=== PATIENT | female | born 1975 | race Caucasian/White ===

== ENCOUNTER 2018-10-05 17:52 | Inpatient (IN) | payer OTHER ==
[2018-10-05] MEDS ORDERED: SODIUM CHLORIDE 0.9% 1,000 ML IV STA (18:30)
[2018-10-05] MEDS ORDERED: IBUPROFEN 600 MG TAB PO STA (18:30)
[2018-10-05 19:11] LABS: Basophils # (A) 0.2 k/uL (0-0.2); Basophils % (A) 1 %; Eosinophils # (A) 0.3 k/uL (0-0.7); Eosinophils % (A) 1 %; HCT 37.3 % (34.0-46.0); HGB 11.9 gm/dL (11.4-16.0); Hypochromasia Slight; Lymphocytes # (A) 2.1 k/uL (1.0-4.8); Lymphocytes % (A) 8 %; MCH 27.2 pg (25.0-35.0); MCV 84.9 fL (80.0-100.0); Mean Platelet Volume 7.5; Monocytes # (A) 1.6 k/uL (0-1.0); Monocytes % (A) 6 %; Neutrophils # (A) 23.5 k/uL (1.3-7.7); Neutrophils % (A) 84 %; Platelet Count 490 k/uL (150-450); RBC 4.39 m/uL (3.80-5.40); RDW 14.5 % (11.5-15.5); WBC 27.9 k/uL (3.8-10.6)
[2018-10-05 19:21] LABS: ALT 17 U/L (9-52); AST 26 U/L (14-36); African American GFR (CKD) >90 (>60 ml/min/1.73 sqM); Albumin 3.8 g/dL (3.5-5.0); Alkaline Phosphatase 139 U/L (38-126); Anion Gap 19 mmol/L; Blood Urea Nitrogen 8 mg/dL (7-17); Calcium 9.4 mg/dL (8.4-10.2); Carbon Dioxide 20 mmol/L (22-30); Chloride 96 mmol/L (98-107); Glucose 358 mg/dL (74-99); Magnesium 1.7 mg/dL (1.6-2.3); Non-African American GFR(CKD) >90 (>60 ml/min/1.73 sqM); Potassium 4.2 mmol/L (3.5-5.1); Sodium 135 mmol/L (137-145); Total Bilirubin 0.7 mg/dL (0.2-1.3); Total Protein 7.7 g/dL (6.3-8.2)
[2018-10-05 19:26] LABS: INR 0.9 (<1.2); Partial Thromboplastin Time 23.7 sec (22.0-30.0); Prothrombin Time 9.5 sec (9.0-12.0)
--- NOTE | 2018-10-05 19:33 | XR ---
EXAMINATION TYPE: XR chest 2V DATE OF EXAM: 10/05/2018 COMPARISON: NONE HISTORY: Fever TECHNIQUE: Frontal and lateral views of the chest are obtained. FINDINGS: Heart and mediastinum are normal. Lungs are clear. Diaphragm is normal. Bony thorax appear s normal. IMPRESSION: Normal chest.
--- NOTE | 2018-10-05 19:49 | ED ---
General Adult HPI - General Chief complaint: Arrhythmia/Palpitations Stated complaint: High HR, High BP Time Seen by Provider: 10/05/18 18:05 Source: patient Mode of arrival: ambulatory Limitations: no limitations - History of Present Illness Initial comments: The patient is a 42-year-old female with past medical history of insulin dependant diabetes who presents to the emergency room with reported cold-like symptoms for the past 3 weeks. She states that it started with bilateral ear pain and decreased hearing. She states that it then progressed to significant nasal drainage and a sore throat. Now reports that she feels as if she is having difficulty swallowing because of copious nasal drainage. She did go to an urgent care. They found that the patient had an elevated heart rate and blood pressure and sent her to the emergency room for evaluation. Upon arrival the patient does have a blood pressure of 200 systolic. She also has a heart rate in the 140s. She states that she has been using a significant amount of Sudafed and DayQuil [id number] for her ALLERGY symptoms. States she may have taken it in excess. She reports a nonproductive cough. She denies any headaches or visual changes. No unilateral numbness or weakness. No neck pain or stiffness. Denies any chest pain. Does admit to shortness of breath. She denies any abdominal pain or changes in her bowel or bladder habits. Denies dysuria, hematuria or difficulty voiding. Denies any melanotic stools or hematochezia. No diarrhea or constipation. She does have a history of diabetes. States she has not taken her insulin in 2 years because she moved to the area and never established care. She has never been in DKA. There are no other alleviating, precipitating or modifying factors - Related Data Home Medications Medication Instructions Recorded Confirmed Cetirizine HCl [Zyrtec] 10 mg PO DAILY 10/05/18 10/05/18 Ibuprofen [Motrin Ib] 400 mg PO Q6HR PRN 10/05/18 10/05/18 Previous Rx's Medication Instructions Recorded Amoxic-Pot Clav 875-125Mg 1 tab PO Q12HR #20 tablet 10/08/18 [Augmentin 875-125] Insulin Detemir (Levemir) [Levemir] 50 unit SQ HS #30 syr 10/08/18 Metoprolol Tartrate [Lopressor] 50 mg PO BID #60 tab 10/08/18 Syringe and Needle,Insulin,1Ml 1 each SQ HS #100 disp.syrin 10/08/18 [Insulin Syringe 29G 1/2" 1ml] Allergies Allergy/AdvReac Type Severity Reaction Status Date / Time coconut Allergy Unknown Verified 10/05/18 19:02 palm oil Allergy Unknown Verified 10/05/18 19:02 acetaminophen [From [place]] AdvReac HEADACHE Verified 10/05/18 19:02 hydrocodone [From [place]] AdvReac HEADACHE Verified 10/05/18 19:02 Review of Systems ROS Statement: Those systems with pertinent positive or pertinent negative responses have been documented in the HPI. ROS Other: All systems not noted in ROS Statement are negative. Past Medical History Past Medical History: Diabetes Mellitus History of Any Multi-Drug Resistant Organisms: None Reported Past Surgical History: Section, Hernia Repair, Tonsillectomy Past Psychological History: No Psychological Hx Reported Smoking Status: Never smoker Past Alcohol Use History: None Reported Past Drug Use History: None Reported General Exam Limitations: no limitations General appearance: alert, in no apparent distress Head exam: Present: atraumatic, normocephalic, normal inspection Eye exam: Present: normal appearance, PERRL, EOMI. Absent: scleral icterus, conjunctival injection, periorbital swelling ENT exam: Present: mucous membranes moist, TM's normal bilaterally, normal external ear exam, other (posterior pharynx is erythematous. No uvular deviation. No peritonsillar abscess. No white plaquing. No drooling, trismus, hoarseness or stridor. No brawny edema to the neck. Floor of mouth is soft. No tongue swelling. ) Neck exam: Present: normal inspection, lymphadenopathy (anterior cervical lymphadenopathy). Absent: tenderness, meningismus Respiratory exam: Present: normal lung sounds bilaterally. Absent: respiratory distress, wheezes, rales, rhonchi, stridor Cardiovascular Exam: Present: normal rhythm, tachycardia, normal heart sounds. Absent: systolic murmur, diastolic murmur, rubs, gallop, clicks GI/Abdominal exam: Present: soft, normal bowel sounds. Absent: distended, tenderness, guarding, rebound, rigid Extremities exam: Present: normal inspection, full ROM, normal capillary refill. Absent: tenderness, pedal edema, joint swelling, calf tenderness Back exam: Present: normal inspection Neurological exam: Present: alert, oriented X3, CN II-XII intact Psychiatric exam: Present: normal affect, normal mood Skin exam: Present: warm, dry, intact, normal color. Absent: rash Course Vital Signs 10/05/18 10/05/18 10/05/18 17:59 19:08 19:22 Temperature 100.3 F H Pulse Rate 141 H 135 H Pulse Rate [ 135 H [employer] ] Respiratory 18 18 Rate Blood Pressure 198/103 199/114 O2 Sat by Pulse 97 96 Oximetry 10/05/18 10/05/18 10/05/18 19:59 20:48 22:27 Temperature 99.3 F 99.0 F 98.8 F Pulse Rate 134 H 130 H 130 H Pulse Rate [ [employer] ] Respiratory 16 16 16 Rate Blood Pressure 198/114 154/86 180/96 O2 Sat by Pulse 98 98 95 Oximetry 10/05/18 23:00 Temperature 98.3 F Pulse Rate 128 H Pulse Rate [ [employer] ] Respiratory 16 Rate Blood Pressure 182/89 O2 Sat by Pulse 95 Oximetry EKG Findings - EKG Comments: EKG Findings:: EKG demonstrates a sinus tachycardia with a ventricular rate of 137. SD interval 134. QRS 88. QTC 446. There are no acute ST segment elevations or depressions concerning for ischemic changes Medical Decision Making - Medical Decision Making Upon arrival the patient is placed into room 6. She is hooked to continuous pulse ox and cardiac monitoring. Peripheral IV is established. The patient is given a 2 L bolus of 0.9% normal saline. We did perform a 12-lead EKG which demonstrates a sinus tachycardia. There are no signs of Parkinson White or Brugada. I did recommend laboratory studies, urinalysis, CT of the patient's sinuses and neck. I also recommended a chest x-ray. The patient did agree to this. Upon return of the results, I did discuss them with the patient. I did discuss diagnosis, differential and treatment options. The patient does have 4+ ketones in her urine. She has a glucose of 358 and a gap of 19. Because of this, I made the patient aware that she is in DKA. I did place an order for Accu-Cheks every 1 hour. The patient will be placed on insulin drip starting at 6 units per hour. I ordered lytes every 4 hours. Blood cultures were obtained and the patient was started on Unasyn. She was admitted to Dr. Elaine. I did call and discuss the case with him and he did accept the admission. Bridging orders were placed. The patient's blood pressure has improved to 150 systolic. Her heart rate has also improved slightly. The patient remained in stable condition awaiting transport to the floor - Differential Diagnosis acute DKA, acute tachycardia, acute pharyngitis, SIRS 3/4 - Lab Data Result diagrams: 10/08/18 06:08 10/08/18 06:08 Lab Results 10/05/18 10/05/18 10/05/18 Range/Units 18:55 19:01 19:01 WBC 27.9 H (3.8-10.6) k/uL RBC 4.39 (3.80-5.40) m/uL Hgb 11.9 (11.4-16.0) gm/dL Hct 37.3 (34.0-46.0) % MCV 84.9 (80.0-100.0) fL MCH 27.2 (25.0-35.0) pg MCHC 32.0 (31.0-37.0) g/dL RDW 14.5 (11.5-15.5) % Plt Count 490 H (150-450) k/uL Neutrophils % 84 % Lymphocytes % 8 % Monocytes % 6 % Eosinophils % 1 % Basophils % 1 % Neutrophils # 23.5 H (1.3-7.7) k/uL Lymphocytes # 2.1 (1.0-4.8) k/uL Monocytes # 1.6 H (0-1.0) k/uL Eosinophils # 0.3 (0-0.7) k/uL Basophils # 0.2 (0-0.2) k/uL Hypochromasia Slight PT 9.5 (9.0-12.0) sec INR 0.9 (<1.2) APTT 23.7 (22.0-30.0) sec Sodium 135 L (137-145) mmol/L Potassium 4.2 (3.5-5.1) mmol/L Chloride 96 L (98-107) mmol/L Carbon Dioxide 20 L (22-30) mmol/L Anion Gap 19 mmol/L BUN 8 (7-17) mg/dL Creatinine 0.39 L (0.52-1.04) mg/dL Est GFR (CKD-EPI)AfAm >90 (>60 ml/min/1.73 sqM) Est GFR (CKD-EPI)NonAf >90 (>60 ml/min/1.73 sqM) Glucose 358 H (74-99) mg/dL Plasma Lactic Acid James (0.7-2.0) mmol/L Calcium 9.4 (8.4-10.2) mg/dL Magnesium 1.7 (1.6-2.3) mg/dL Total Bilirubin 0.7 (0.2-1.3) mg/dL AST 26 (14-36) U/L ALT 17 (9-52) U/L Alkaline Phosphatase 139 H (38-126) U/L Total Protein 7.7 (6.3-8.2) g/dL Albumin 3.8 (3.5-5.0) g/dL Urine Color Urine Appearance (Clear) Urine pH (5.0-8.0) Ur Specific [place] (1.001-1.035) Urine Protein (Negative) Urine Glucose (UA) (Negative) Urine Ketones (Negative) Urine Blood (Negative) Urine Nitrite (Negative) Urine Bilirubin (Negative) Urine Urobilinogen (<2.0) mg/dL Ur Leukocyte Esterase (Negative) Urine RBC (0-5) /hpf Urine WBC (0-5) /hpf Ur Squamous Epith Cells (0-4) /hpf Urine Bacteria (None) /hpf Urine Mucus (None) /hpf Acetone, Qual (Negative) Group A Strep Rapid (Negative) 10/05/18 10/05/18 10/05/18 Range/Units 19:01 19:01 19:01 WBC (3.8-10.6) k/uL RBC (3.80-5.40) m/uL Hgb (11.4-16.0) gm/dL Hct (34.0-46.0) % MCV (80.0-100.0) fL MCH (25.0-35.0) pg MCHC (31.0-37.0) g/dL RDW (11.5-15.5) % Plt Count (150-450) k/uL Neutrophils % % Lymphocytes % % Monocytes % % Eosinophils % % Basophils % % Neutrophils # (1.3-7.7) k/uL Lymphocytes # (1.0-4.8) k/uL Monocytes # (0-1.0) k/uL Eosinophils # (0-0.7) k/uL Basophils # (0-0.2) k/uL Hypochromasia PT (9.0-12.0) sec INR (<1.2) APTT (22.0-30.0) sec Sodium (137-145) mmol/L Potassium (3.5-5.1) mmol/L Chloride (98-107) mmol/L Carbon Dioxide (22-30) mmol/L Anion Gap mmol/L BUN (7-17) mg/dL Creatinine (0.52-1.04) mg/dL Est GFR (CKD-EPI)AfAm (>60 ml/min/1.73 sqM) Est GFR (CKD-EPI)NonAf (>60 ml/min/1.73 sqM) Glucose (74-99) mg/dL Plasma Lactic Acid James 1.6 (0.7-2.0) mmol/L Calcium (8.4-10.2) mg/dL Magnesium (1.6-2.3) mg/dL Total Bilirubin (0.2-1.3) mg/dL AST (14-36) U/L ALT (9-52) U/L Alkaline Phosphatase (38-126) U/L Total Protein (6.3-8.2) g/dL Albumin (3.5-5.0) g/dL Urine Color Urine Appearance (Clear) Urine pH (5.0-8.0) Ur Specific [place] (1.001-1.035) Urine Protein (Negative) Urine Glucose (UA) (Negative) Urine Ketones (Negative) Urine Blood (Negative) Urine Nitrite (Negative) Urine Bilirubin (Negative) Urine Urobilinogen (<2.0) mg/dL Ur Leukocyte Esterase (Negative) Urine RBC (0-5) /hpf Urine WBC (0-5) /hpf Ur Squamous Epith Cells (0-4) /hpf Urine Bacteria (None) /hpf Urine Mucus (None) /hpf Acetone, Qual Positive (Negative) Group A Strep Rapid Negative (Negative) 10/05/18 Range/Units 20:48 WBC (3.8-10.6) k/uL RBC (3.80-5.40) m/uL Hgb (11.4-16.0) gm/dL Hct (34.0-46.0) % MCV (80.0-100.0) fL MCH (25.0-35.0) pg MCHC (31.0-37.0) g/dL RDW (11.5-15.5) % Plt Count (150-450) k/uL Neutrophils % % Lymphocytes % % Monocytes % % Eosinophils % % Basophils % % Neutrophils # (1.3-7.7) k/uL Lymphocytes # (1.0-4.8) k/uL Monocytes # (0-1.0) k/uL Eosinophils # (0-0.7) k/uL Basophils # (0-0.2) k/uL Hypochromasia PT (9.0-12.0) sec INR (<1.2) APTT (22.0-30.0) sec Sodium (137-145) mmol/L Potassium (3.5-5.1) mmol/L Chloride (98-107) mmol/L Carbon Dioxide (22-30) mmol/L Anion Gap mmol/L BUN (7-17) mg/dL Creatinine (0.52-1.04) mg/dL Est GFR (CKD-EPI)AfAm (>60 ml/min/1.73 sqM) Est GFR (CKD-EPI)NonAf (>60 ml/min/1.73 sqM) Glucose (74-99) mg/dL Plasma Lactic Acid James (0.7-2.0) mmol/L Calcium (8.4-10.2) mg/dL Magnesium (1.6-2.3) mg/dL Total Bilirubin (0.2-1.3) mg/dL AST (14-36) U/L ALT (9-52) U/L Alkaline Phosphatase (38-126) U/L Total Protein (6.3-8.2) g/dL Albumin (3.5-5.0) g/dL Urine Color Light Yellow Urine Appearance Clear (Clear) Urine pH 5.5 (5.0-8.0) Ur Specific [place] >1.050 H (1.001-1.035) Urine Protein 2+ H (Negative) Urine Glucose (UA) 4+ H (Negative) Urine Ketones 4+ H (Negative) Urine Blood Negative (Negative) Urine Nitrite Negative (Negative) Urine Bilirubin Negative (Negative) Urine Urobilinogen <2.0 (<2.0) mg/dL Ur Leukocyte Esterase Negative (Negative) Urine RBC 2 (0-5) /hpf Urine WBC 3 (0-5) /hpf Ur Squamous Epith Cells 1 (0-4) /hpf Urine Bacteria Occasional H (None) /hpf Urine Mucus Rare H (None) /hpf Acetone, Qual (Negative) Group A Strep Rapid (Negative) Disposition Clinical Impression: Sinus tachycardia, Diabetic keto-acidosis, Sinusitis Disposition: ADMITTED IP TO THIS HOSP Condition: Stable Is patient prescribed a controlled substance at d/c from ED?: No Decision to Admit Reason: Admit from EC Decision Date: 10/05/18 Decision Time: 22:07
--- NOTE | 2018-10-05 20:04 | CT ---
EXAMINATION TYPE: CT soft tissue neck w con DATE OF EXAM: 10/05/2018 7:46 PM COMPARISON: None HISTORY: Sore throat and congestion CT DLP: 269 mGycm Automated exposure control for dose reduction was used. CONTRAST: CT scan of the neck is performed following with IV Contrast, patient injected with 100 mL of Isovue 3 00. Axial images are obtained, coronal and sagittal reformatted images are reviewed. FINDINGS: There is normal branching pattern of the great vessels on the aortic arch. There is air in the upper thoracic esophagus. Thyroid gland is symmetric. There is contrast opacification of the carotid arteri es and jugular veins. There is contrast opacification of the vertebral arteries. Submandibular saliva ry glands are symmetric. There are multiple bilateral anterior and posterior triangle cervical lymph nodes. The largest measures 1.3 x 1 cm. The parotid glands are symmetric. There are parotid lymph nod es that measure up to 1 cm. The tonsils are within normal limits. Adenoids appear normal. Epiglottis appears normal. The visualized trachea appears normal. There is normal aeration of the visualized par anasal sinuses. Skull base is intact. Temporal bones are intact. IMPRESSION: Mild anterior and posterior bilateral cervical lymphadenopathy. No evidence of an absces s. This is consistent with nonspecific inflammatory process. No evidence of abscess. Normal epiglotti s.
[2018-10-05] MEDS ORDERED: AMPICILLIN-SULBACTAM 3 GM in SODIUM CHLORIDE 0.9% 100 ML IVPB STA (20:57)
[2018-10-05] MEDS ORDERED: SODIUM CHLORIDE 0.9% 1,000 ML IV ONE (20:59)
[2018-10-05 21:02] LABS: Appearance,Urine Clear (Clear); Bacteria,Urine Occasional /hpf; Bilirubin,Urine Negative (Negative); Blood,Urine Negative (Negative); Color,Urine Light Yellow; Glucose,Urine (UA) 4+ (Negative); Leukocyte Esterase,Urine Negative (Negative); Mucus,Urine Rare /hpf; Nitrite,Urine Negative (Negative); PH, Urine 5.5 (5.0-8.0); Protein,Urine 2+ (Negative); RBC,Urine 2 /hpf (0-5); Squamous Epithelial Cell,Urine 1 /hpf (0-4); Urobilinogen,Urine <2.0 mg/dL (<2.0); WBC,Urine 3 /hpf (0-5)
[2018-10-05 21:03] LABS: Specific Gravity,Urine >1.050 (1.001-1.035)
[2018-10-05 21:04] LABS: Ketones,Urine 4+ (Negative)
[2018-10-05] MEDS: SODIUM CHLORIDE 0.9% 1,000 ML IV SCH (21:46)
[2018-10-05] MEDS ORDERED: INSULIN REGULAR 100 UNIT in SODIUM CHLORIDE 0.9% 100 ML IV SCH ×4 (22:00)
[2018-10-05 22:24] LABS: Glucose,Whole Blood 285 mg/dL (75-99)
[2018-10-05 23:26] LABS: Glucose,Whole Blood 272 mg/dL (75-99)
[2018-10-06 00:55] LABS: Glucose,Whole Blood 246 mg/dL (75-99)
[2018-10-06 01:14] LABS: Potassium 3.8 mmol/L (3.5-5.1)
[2018-10-06] MEDS ORDERED: IBUPROFEN 600 MG TAB PO PRN (01:32)
[2018-10-06] MEDS ORDERED: hydrALAZINE HCL 20 MG/ML 1 ML VIAL IVP STA (01:37)
[2018-10-06] MEDS ORDERED: ONDANSETRON 4 MG/2 ML VIAL IVP PRN (01:37)
[2018-10-06] MEDS ORDERED: Potassium Replacement Protocol 1 EACH MISC MISCELLANE PRN ×2 (01:40→19:31)
[2018-10-06] MEDS ORDERED: Magnesium Replacement Protocol 1 EACH MISC MISCELLANE PRN (01:40)
[2018-10-06] MEDS ORDERED: INSULIN REGULAR 100 UNIT in SODIUM CHLORIDE 0.9% 100 ML IV SCH (02:00)
[2018-10-06 02:08] LABS: Glucose,Whole Blood 250 mg/dL (75-99)
[2018-10-06] MEDS: D5-0.45% NACL WITH KCL 20MEQ/L 1,000 ML IV SCH ×2 (02:34→08:51)
[2018-10-06] MEDS: SODIUM CHLORIDE 0.9% 1,000 ML IV SCH ×2 (02:36→17:35)
[2018-10-06 03:07] LABS: Glucose,Whole Blood 252 mg/dL (75-99)
[2018-10-06 04:00] LABS: Glucose,Whole Blood 234 mg/dL (75-99)
[2018-10-06 05:06] LABS: Glucose,Whole Blood 226 mg/dL (75-99)
[2018-10-06] MEDS: AMPICILLIN-SULBACTAM 3 GM in SODIUM CHLORIDE 0.9% 100 ML IVPB SCH ×4 (05:27→22:21)
[2018-10-06 05:57] LABS: Potassium 3.4 mmol/L (3.5-5.1)
[2018-10-06 06:07] LABS: Glucose,Whole Blood 209 mg/dL (75-99)
[2018-10-06 07:08] LABS: Glucose,Whole Blood 190 mg/dL (75-99)
[2018-10-06] MEDS ORDERED: INSULIN ASPART (NovoLOG) 100 UNIT/ML VIAL SQ SCH (07:30)
[2018-10-06 08:13] LABS: Glucose,Whole Blood 238 mg/dL (75-99)
[2018-10-06] MEDS ORDERED: hydrALAZINE HCL 20 MG/ML 1 ML VIAL IVP PRN (09:47)
[2018-10-06 10:19] LABS: Glucose,Whole Blood 208 mg/dL (75-99)
[2018-10-06 12:17] LABS: Glucose,Whole Blood 131 mg/dL (75-99)
[2018-10-06 12:38] VITALS: BMI 29.0
[2018-10-06] MEDS: INSULIN DETEMIR (LEVEMIR) 100 UNIT/ML SYR SQ SCH (12:47)
[2018-10-06] MEDS: INSULIN ASPART (NovoLOG) 100 UNIT/ML VIAL SQ SCH ×3 (12:47→21:15)
[2018-10-06 13:39] LABS: Hemoglobin A1C 13.7 % (4.0-6.0)
[2018-10-06 16:45] LABS: Glucose,Whole Blood 224 mg/dL (75-99)
[2018-10-06] MEDS: cloNIDine HCL 0.1 MG TAB PO PRN ×2 (17:44→22:27)
[2018-10-06] MEDS ORDERED: METOPROLOL TARTRATE 25 MG TAB PO SCH (18:04)
[2018-10-06] MEDS ORDERED: TEMAZEPAM 15 MG CAP PO PRN (18:06)
[2018-10-06] MEDS: POTASSIUM CHLORIDE ER 20 MEQ TAB.ER PO SCH ×2 (20:00→21:14)
[2018-10-06 21:05] LABS: Glucose,Whole Blood 277 mg/dL (75-99)
[2018-10-06] MEDS: HEPARIN SODIUM,PORCINE 5,000 UNIT/ML 1 ML VIAL SQ SCH (21:14)
--- NOTE | 2018-10-06 21:59 | HP ---
HISTORY AND PHYSICAL CHIEF COMPLAINTS: Uncontrolled diabetes mellitus type 2. HISTORY OF PRESENT ILLNESS: This 42-year-old woman with a past medical history of multiple medical problems including diabetes mellitus, section, hernia repair, recently moved to the area but apparently patient not following with a primary physician. Patient is not feeling well. Patient has shortness of breath and some palpitations and tachycardia. Patient came to [facility] and was found to have high heart rate and high blood pressure and the patient also was found to have acute DKA. The patient was admitted for further evaluation and treatment. Insulin drip was initiated. Blood sugar improved at 131. Lantus was initiated at this time. There is no history of fever, rigors or chills. No history of headache, loss of consciousness or seizures at this time. PAST MEDICAL HISTORY: Diabetes, section, hernia repair, tonsillectomy. MEDICATIONS: Prior to admission, ibuprofen and Zyrtec daily. ALLERGIES: COCONUT PALM AND NORCO. FAMILY HISTORY: No history of heart disease or strokes in the family. SOCIAL HISTORY: No history of smoking. No history of alcohol intake. REVIEW OF SYSTEMS: ENT: No diminished vision. No diminished hearing. CARDIOVASCULAR system: Otherwise, as mentioned earlier. CARDIOVASCULAR: No angina or palpitations. RESPIRATORY: As mentioned earlier. GI no nausea or vomiting. no dysuria. NERVOUS SYSTEM: No numbness or weakness. ALLERGY/IMMUNOLOGY: No asthma of hayfever. MUSCULOSKELETAL: As mentioned earlier. HEMATOLOGY/ONCOLOGY: No history of anemia. ENDOCRINE: As mentioned earlier. CONSTITUTIONAL: As mentioned earlier. Dermatology: Negative. Rheumatology: Negative. Psychiatry: As mentioned earlier. PHYSICAL EXAMINATION: The patient is alert and oriented times three. Pulse 127, blood pressure 171/89, respiration 20, temperature 98.4, pulse ox 97% on room air. HEENT: Conjunctivae normal. Oral mucosa moist. NECK is no jugular venous distention. No carotid bruit. No lymph node enlargement. Minimal cervical lymphadenopathy present. CARDIOVASCULAR: S1, S2 muffled. RESPIRATIONS: Breath sounds diminished in the bases. A few scattered rhonchi and crackles. ABDOMEN: Soft, nontender. LEGS: No edema. No swelling. NERVOUS SYSTEM: Higher functions as mentioned. Moves all four limbs. No focal deficits. Lymphatics: No lymph nodes palpable in the neck, axillae or groin. SKIN: No ulcers. No rashes. No bleeding. JOINTS: No active deforming arthropathy. LAB STUDIES: WBC 27.9, sodium 135, potassium 4.2. UA noted and the chest x-ray which was personally reviewed by me showed increased bronchovascular markings, soft tissue neck CT scan showed cervical lymphadenopathy present. ASSESSMENT: 1. Acute diabetes mellitus exacerbation as diabetic ketoacidosis. 2. Increased WBC. 3. Possible acute purulent tracheobronchitis. 4. History of noncompliance. 5. Tachycardia. 6. Hypertension. 7. History of coronary artery disease. 8. History of hernia repair. 9. History of tonsillectomy. RECOMMENDATIONS AND DISCUSSION: This 42-year-old woman who presented with multiple complex medical issues, we will monitor the patient closely, continue the current medications, management and symptomatic treatment. We will initiate Lantus 40 units subcu daily. Otherwise, I would also recommend empiric antibiotics. The patient is started on Unasyn. I would also recommend Cardiology consultation because of tachycardia. Diabetic education has been recommended. DVT prophylaxis. Guarded prognosis. Two-D echo with Doppler also will be ordered. Guarded prognosis because of multiple complex medical issues. Further recommendations to follow. Also recommend the patient follow up with primary physician in the outpatient setting also closely. MMODL / IJN: [id number] /
[2018-10-07 02:12] LABS: Glucose,Whole Blood 247 mg/dL (75-99)
[2018-10-07] MEDS: AMPICILLIN-SULBACTAM 3 GM in SODIUM CHLORIDE 0.9% 100 ML IVPB SCH ×4 (04:33→22:09)
[2018-10-07 06:25] LABS: Basophils # (A) 0.1 k/uL (0-0.2); Basophils % (A) 1 %; Eosinophils # (A) 0.1 k/uL (0-0.7); Eosinophils % (A) 1 %; HCT 30.7 % (34.0-46.0); Hypochromasia Slight; Lymphocytes # (A) 2.7 k/uL (1.0-4.8); Lymphocytes % (A) 18 %; MCH 27.3 pg (25.0-35.0); MCHC 31.9 g/dL (31.0-37.0); MCV 85.7 fL (80.0-100.0); Mean Platelet Volume 7.4; Monocytes # (A) 1.1 k/uL (0-1.0); Monocytes % (A) 7 %; Neutrophils # (A) 10.9 k/uL (1.3-7.7); Neutrophils % (A) 72 %; Platelet Count 421 k/uL (150-450); RBC 3.58 m/uL (3.80-5.40); RDW 14.9 % (11.5-15.5); WBC 15.3 k/uL (3.8-10.6)
[2018-10-07 06:30] LABS: HGB 9.8 gm/dL (11.4-16.0)
[2018-10-07 06:41] LABS: African American GFR (CKD) >90 (>60 ml/min/1.73 sqM); Anion Gap 8 mmol/L; Blood Urea Nitrogen 6 mg/dL (7-17); Calcium 8.2 mg/dL (8.4-10.2); Carbon Dioxide 24 mmol/L (22-30); Chloride 101 mmol/L (98-107); Glucose 233 mg/dL (74-99); Non-African American GFR(CKD) >90 (>60 ml/min/1.73 sqM); Potassium 4.1 mmol/L (3.5-5.1); Sodium 133 mmol/L (137-145)
[2018-10-07 07:15] LABS: Glucose,Whole Blood 215 mg/dL (75-99)
[2018-10-07] MEDS: PANTOPRAZOLE 40 MG TABLET PO SCH (07:24)
[2018-10-07] MEDS: INSULIN DETEMIR (LEVEMIR) 100 UNIT/ML SYR SQ SCH (07:24)
[2018-10-07] MEDS: INSULIN ASPART (NovoLOG) 100 UNIT/ML VIAL SQ SCH ×6 (07:25→21:12)
[2018-10-07] MEDS ORDERED: METOPROLOL TARTRATE 25 MG TAB PO SCH (09:00)
[2018-10-07] MEDS: METOPROLOL TARTRATE 25 MG TAB PO SCH ×3 (09:24→22:10)
[2018-10-07] MEDS: LORATADINE 10 MG TAB PO SCH (09:24)
[2018-10-07] MEDS: HEPARIN SODIUM,PORCINE 5,000 UNIT/ML 1 ML VIAL SQ SCH ×2 (09:24→21:15)
--- NOTE | 2018-10-07 09:39 | P.CRDCN ---
History of Present Illness Consult date: 10/07/18 Chief complaint: Not feeling well History of present illness: This is a pleasant 42-year-old female patient with a past medical history significant for diabetes, the patient stopped taking her diabetes medication for the last few weeks, presented to the emergency room because she was not feeling well. For the last few days, she has been experiencing symptoms of nasal congestion and nasal drainage. Beside that she was experiencing symptoms of sore throat and difficulty swallowing. The patient was found to be hypertensive as well as tachycardic. The systolic blood pressure was around 200 mmHg and her heart rate was around 140 beats per minutes. The patient stated that she was using significant amount of anti-congestion medications. She was diagnosed with diabetes ketoacidosis and she was admitted for further evaluation and manage ment. The patient is not aware of any prior history of hypertension or dyslipidemia in the past. She was started on metoprolol with improvement in the heart rate. Currently she is on metoprolol 25 mg by mouth twice a day. The heart rate has been around 120 bpm. The pressure has been around 140 mmHg. I'm going to increase the dose of metoprolol to 25 mg by mouth 3 times a day. Also I will obtain a TSH. Also will obtain an echocardiogram was Doppler. The patient did not have any symptoms of chest pain or chest discomfort, shortness of breath, dizziness or lightheadedness, or syncope. No symptoms of abdominal discomfort, nausea or vomiting. She is not aware of any prior cardiac history and never seen any cleaner industrial in the past. The EKG showed sinus tachycardia. Past Medical History Past Medical History: Diabetes Mellitus History of Any Multi-Drug Resistant Organisms: None Reported Past Surgical History: Section, Hernia Repair, Tonsillectomy Past Psychological History: No Psychological Hx Reported Smoking Status: Never smoker Past Alcohol Use History: None Reported Past Drug Use History: None Reported Medications and Allergies Home Medications Medication Instructions Recorded Confirmed Type Cetirizine HCl [Zyrtec] 10 mg PO DAILY 10/05/18 10/05/18 History Ibuprofen [Motrin Ib] 400 mg PO Q6HR PRN 10/05/18 10/05/18 History Allergies Allergy/AdvReac Type Severity Reaction Status Date / Time coconut Allergy Unknown Verified 10/05/18 19:02 palm oil Allergy Unknown Verified 10/05/18 19:02 acetaminophen [From [facility]] AdvReac HEADACHE Verified 10/05/18 19:02 hydrocodone [From [facility]] AdvReac HEADACHE Verified 10/05/18 19:02 Physical Exam Vitals: Vital Signs Temp Pulse Resp BP Pulse Ox 10/07/18 04:00 98.2 F 100 17 138/89 95 10/06/18 23:26 112 H 18 10/06/18 23:25 98.2 F 112 H 18 144/93 94 L 10/06/18 20:00 98 F 120 H 17 157/95 94 L 10/06/18 16:00 122 H 183/116 97 10/06/18 12:00 121 H 144/83 98 Intake and Output 10/06/18 10/07/18 10/07/18 22:59 06:59 14:59 Intake Total 720 1700 360 Balance 720 1700 360 Intake: Intake, IV Titration 400 1400 Amount Ampicillin-Sulbactam 3 gm 100 In Sodium Chloride 0.9% 100 ml @ 200 mls/hr IVPB ONCE STA Rx#:[id number] Ampicillin-Sulbactam 3 gm 200 In Sodium Chloride 0.9% 100 ml @ 200 mls/hr IVPB Q6H [facility] Rx#:[id number] D5-0.45% NaCl with KCl 300 20Meq/l 1,000 ml @ 150 mls/hr IV .Q6H40M [facility] Rx# :[id number] Sodium Chloride 0.9% 1, 1200 000 ml @ 100 mls/hr IV . Q10H [facility] Rx#:[id number] Oral 320 300 360 Other: Voiding Method Toilet Toilet # Voids 3 Weight 86.6 kg - Constitutional General appearance: no acute distress - Respiratory Respiratory: bilateral: CTA - Cardiovascular Rhythm: regular Heart sounds: normal: S1, S2 Results 10/07/18 05:47 10/07/18 05:47 CBC 10/07/18 Range/Units 05:47 WBC 15.3 H (3.8-10.6) k/uL RBC 3.58 L (3.80-5.40) m/uL Hgb 9.8 L D (11.4-16.0) gm/dL Hct 30.7 L (34.0-46.0) % Plt Count 421 (150-450) k/uL Comprehensive Metabolic Panel 10/07/18 Range/Units 05:47 Sodium 133 L (137-145) mmol/L Potassium 4.1 (3.5-5.1) mmol/L Chloride 101 (98-107) mmol/L Carbon Dioxide 24 (22-30) mmol/L BUN 6 L (7-17) mg/dL Creatinine 0.40 L (0.52-1.04) mg/dL Glucose 233 H (74-99) mg/dL Calcium 8.2 L (8.4-10.2) mg/dL Current Medications Generic Name Dose Route Start Last Admin Trade Name Freq PRN Reason Stop Dose Admin Clonidine 0.1 mg 10/06/18 09:47 10/06/18 22:27 Catapres PO 0.1 mg Q4HR PRN Administration Hypertension Heparin Sodium (Porcine) 5,000 unit 10/06/18 21:00 10/07/18 09:24 Heparin SQ 5,000 unit Q12HR [facility] Administration Hydralazine HCl 10 mg 10/06/18 09:47 Apresoline IVP Q4HR PRN Blood Pressure - High Ampicillin Sodium/Sulbactam 100 mls @ 200 mls/hr 10/06/18 04:00 10/07/18 09:24 Sodium 3 gm/ Sodium Chloride IVPB 200 mls/hr Q6H [facility] Administration Ibuprofen 600 mg 10/06/18 01:32 10/06/18 09:02 Motrin PO 600 mg QID PRN Administration Fever Insulin Aspart 0 unit 10/06/18 12:30 10/07/18 07:25 Novolog SQ 3 unit ACHS [facility] Administration Protocol Insulin Detemir 40 unit 10/06/18 12:00 10/07/18 07:24 Levemir SQ 40 unit DAILY@0700 [facility] Administration Loratadine 10 mg 10/07/18 09:00 10/07/18 09:24 Claritin PO 10 mg DAILY [facility] Administration Metoprolol Tartrate 25 mg 10/07/18 09:00 10/07/18 09:24 Lopressor PO 25 mg TID [facility] Administration Miscellaneous Information 1 each 10/06/18 01:40 Magnesium Per Protocol MISCELLANE DAILY PRN Per Protocol Protocol Miscellaneous Information 1 each 10/06/18 01:40 Potassium Per Protocol MISCELLANE DAILY PRN Per Protocol Miscellaneous Information 1 each 10/06/18 19:31 Potassium Per Protocol MISCELLANE DAILY PRN Per Protocol Protocol Ondansetron HCl 4 mg 10/06/18 01:37 10/06/18 12:53 Zofran IVP 4 mg Q6HR PRN Administration Nausea And Vomiting Pantoprazole Sodium 40 mg 10/07/18 07:30 10/07/18 07:24 Protonix PO 40 mg AC-[id number] [facility] Administration Temazepam 15 mg 10/06/18 18:06 Restoril PO HS PRN Insomnia Intake and Output 10/06/18 10/07/18 10/07/18 22:59 06:59 14:59 Intake Total 720 1700 360 Balance 720 1700 360 Intake: Intake, IV Titration 400 1400 Amount Ampicillin-Sulbactam 3 gm 100 In Sodium Chloride 0.9% 100 ml @ 200 mls/hr IVPB ONCE STA Rx#:[id number] Ampicillin-Sulbactam 3 gm 200 In Sodium Chloride 0.9% 100 ml @ 200 mls/hr IVPB Q6H [facility] Rx#:[id number] D5-0.45% NaCl with KCl 300 20Meq/l 1,000 ml @ 150 mls/hr IV .Q6H40M [facility] Rx# :[id number] Sodium Chloride 0.9% 1, 1200 000 ml @ 100 mls/hr IV . Q10H [facility] Rx#:[id number] Oral 320 300 360 Other: Voiding Method Toilet Toilet # Voids 3 Weight 86.6 kg 10/07/18 05:47 10/07/18 05:47 Assessment and Plan Assessment: Assessment #1 diabetes ketoacidosis #2 non-compliance #3 hypertension #4 sinus tachycardia Plan #1 the patient hypertension and tachycardia is probably related to the [id number] anti-congestion medication like Sudafed #2 avoid the use of any anti-congestion medication as well as avoid the use of any nonsteroid anti-inflammatory medications #3 she was started on metoprolol which we'll continue and I would increase the dose to 25 mg by mouth 3 times a day #4 continue monitor the heart rate and blood pressure #5 obtain an echocardiogram was Doppler #6 obtain a TSH Thank you for allowing us participate in her care
[2018-10-07 12:30] LABS: Glucose,Whole Blood 205 mg/dL (75-99)
[2018-10-07 17:07] LABS: Glucose,Whole Blood 230 mg/dL (75-99)
[2018-10-07] MEDS ORDERED: INSULIN DETEMIR (LEVEMIR) 100 UNIT/ML SYR SQ SCH (21:00)
[2018-10-07 21:05] LABS: Glucose,Whole Blood 177 mg/dL (75-99)
[2018-10-07] MEDS: cloNIDine HCL 0.1 MG TAB PO PRN (21:12)
--- NOTE | 2018-10-07 22:00 | PN ---
PROGRESS NOTE DATE OF SERVICE: 10/07/2018. This 42-year-old woman who was admitted with acute diabetic ketoacidosis, is being closely monitored. Patient is on insulin. Insulin doses and blood sugar is also elevated. Of note, the throat culture came back positive with strep group A strep. The patient is currently on Unasyn. No chest pain. No palpitations. PAST MEDICAL HISTORY: Reviewed. REVIEW OF SYSTEMS: CARDIOVASCULAR SYSTEM: No angina or palpitations. RESPIRATION: As mentioned earlier. GI: As mentioned earlier. GENITOURINARY: As mentioned earlier. CENTRAL NERVOUS SYSTEM: No numbness or weakness. CURRENT MEDICATIONS: Reviewed and include: 1. Unasyn 3 grams IV q.6h. 2. Catapres 0.1 q.4 p.r.n. 3. Heparin 5000 subcu b.i.d. 4. Apresoline 10 mg q.4 p.r.n. 5. Motrin 600 mg p.o. q.i.d. 6. NovoLog scale. 7. Levemir 50 units subcu q.h.s. 8. Claritin 10 mg p.o. daily. 9. Lopressor 25 mg t.i.d. 10.Replacement protocols. 11.Zofran. 12.Protonix. 13.Restoril. PHYSICAL EXAM: Patient is alert, oriented times three. Pulse is 114, blood pressure 151/72, respirations 17, temperature 97.9, pulse ox 97% on room air. HEENT: Conjunctivae normal. NECK: No jugular venous distention. CARDIOVASCULAR: S1, S2 muffled. RESPIRATION: Breath sounds diminished in the bases. A few scattered rhonchi and crackles. ABDOMEN: Soft, nontender. LEGS are no edema. No swelling. CENTRAL NERVOUS SYSTEM: No focal deficits. LABS: WBC 15.2, hemoglobin 9.2, sodium 133. ASSESSMENT: 1. Acute diabetes mellitus exacerbation with acute diabetic ketosis present on admission. 2. Increased WBC. 3. Group A strep pyogenes from the throat cultures. 4. Acute purulent tracheobronchitis. 5. History of noncompliance. 6. Tachycardia. 7. Hypertension. 8. History of coronary artery disease. 9. History of hernia repair. 10.History of tonsillectomy. RECOMMENDATIONS AND DISCUSSION: Recommend to continue current medications, management and symptomatic treatment. Otherwise, at this time, I recommend continue the antibiotics. Also recommend infectious disease evaluation. Otherwise, guarded prognosis. Further recommendations to follow. MMODL / IJN: [id number] / [email or web address]
[2018-10-08 02:20] LABS: Glucose,Whole Blood 119 mg/dL (75-99)
[2018-10-08] MEDS: AMPICILLIN-SULBACTAM 3 GM in SODIUM CHLORIDE 0.9% 100 ML IVPB SCH ×2 (04:04→09:33)
[2018-10-08 06:50] LABS: Basophils # (A) 0.1 k/uL (0-0.2); Basophils % (A) 1 %; Eosinophils # (A) 0.3 k/uL (0-0.7); Eosinophils % (A) 3 %; HCT 29.7 % (34.0-46.0); HGB 9.3 gm/dL (11.4-16.0); Hypochromasia Slight; Lymphocytes # (A) 3.7 k/uL (1.0-4.8); Lymphocytes % (A) 39 %; MCH 26.5 pg (25.0-35.0); MCHC 31.5 g/dL (31.0-37.0); MCV 84.1 fL (80.0-100.0); Mean Platelet Volume 7.2; Monocytes # (A) 0.8 k/uL (0-1.0); Monocytes % (A) 8 %; Neutrophils # (A) 4.4 k/uL (1.3-7.7); Neutrophils % (A) 46 %; Platelet Count 425 k/uL (150-450); RBC 3.53 m/uL (3.80-5.40); RDW 13.9 % (11.5-15.5); WBC 9.5 k/uL (3.8-10.6)
[2018-10-08 07:03] LABS: Glucose,Whole Blood 103 mg/dL (75-99)
[2018-10-08 07:10] LABS: African American GFR (CKD) >90 (>60 ml/min/1.73 sqM); Anion Gap 5 mmol/L; Blood Urea Nitrogen 8 mg/dL (7-17); Calcium 8.4 mg/dL (8.4-10.2); Carbon Dioxide 28 mmol/L (22-30); Chloride 105 mmol/L (98-107); Glucose 99 mg/dL (74-99); Non-African American GFR(CKD) >90 (>60 ml/min/1.73 sqM); Potassium 3.7 mmol/L (3.5-5.1); Sodium 138 mmol/L (137-145)
[2018-10-08] MEDS: INSULIN ASPART (NovoLOG) 100 UNIT/ML VIAL SQ SCH ×4 (07:14→12:23)
[2018-10-08] MEDS: PANTOPRAZOLE 40 MG TABLET PO SCH (07:16)
[2018-10-08] MEDS ORDERED: METOPROLOL TARTRATE 50 MG TAB PO SCH (09:00)
--- NOTE | 2018-10-08 09:00 | P.PN ---
Subjective Progress Note Date: 10/08/18 Principal diagnosis: Sinus tachycardia This is a pleasant 42-year-old female patient with a past medical history significant for diabetes, the patient stopped taking all her medication for the last few weeks, was admitted to the hospital with diabetes ketoacidosis. We get involved in her care because of tachycardia. The EKG showed sinus tachycardia. An echocardiogram was ordered and still in process to be done. The TSH was checked and came in to be unremarkable. The patient was started on metoprolol. On follow-up with her today, 10/08/2018, the patient overall is feeling better. She is asymptomatic. On examination she still tachycardic in spite of metoprolol 25 mg by mouth 3 times a day. I am going to increase the dose to 50 mg by mouth twice a day. The TSH came in to be unremarkable. The echo still in process. Objective - Vital Signs Vital signs: Vital Signs Temp 98.2 F 10/08/18 04:00 Pulse 93 10/08/18 04:00 Resp 17 10/08/18 04:00 BP 132/88 10/08/18 04:00 Pulse Ox 95 10/08/18 04:00 Intake & Output 10/07/18 10/08/18 10/08/18 18:59 06:59 18:59 Intake Total 720 1000 Balance 720 1000 Weight 88.6 kg Intake: Intake, IV Titration 200 Amount Ampicillin-Sulbactam 3 gm 200 In Sodium Chloride 0.9% 100 ml @ 200 mls/hr IVPB Q6H [facility] Rx#:[id number] Oral 720 800 Other: Voiding Method Toilet # Voids 1 2 - Constitutional General appearance: Present: no acute distress - Respiratory Respiratory: bilateral: CTA - Cardiovascular Rhythm: regular Heart sounds: normal: S1, S2 - Labs CBC & Chem 7: 10/08/18 06:08 10/08/18 06:08 Labs: Abnormal Lab Results - Last 24 Hours (Table) 10/07/18 10/07/18 10/07/18 Range/Units 12:10 17:05 21:03 RBC (3.80-5.40) m/uL Hgb (11.4-16.0) gm/dL Hct (34.0-46.0) % Creatinine (0.52-1.04) mg/dL POC Glucose (mg/dL) 205 H 230 H 177 H (75-99) mg/dL 10/08/18 10/08/18 10/08/18 Range/Units 02:19 06:08 06:08 RBC 3.53 L (3.80-5.40) m/uL Hgb 9.3 L (11.4-16.0) gm/dL Hct 29.7 L (34.0-46.0) % Creatinine 0.49 L (0.52-1.04) mg/dL POC Glucose (mg/dL) 119 H (75-99) mg/dL 10/08/18 Range/Units 07:02 RBC (3.80-5.40) m/uL Hgb (11.4-16.0) gm/dL Hct (34.0-46.0) % Creatinine (0.52-1.04) mg/dL POC Glucose (mg/dL) 103 H (75-99) mg/dL Microbiology - Last 24 Hours (Table) 10/05/18 18:55 Blood Culture - Preliminary Blood No Growth after 48 hours 10/05/18 19:01 Group A Strep Throat Culture - Final Throat Strep pyogenes (grp a) Assessment and Plan Assessment: Assessment #1 diabetes ketoacidosis #2 non-compliance #3 hypertension #4 sinus tachycardia Plan #1 increase the dose of metoprolol to 50 mg by mouth twice a day #2 follow-up on the echocardiogram #3 the TSH was checked and came in to be unremarkable Thank you for allowing us participate in her care
[2018-10-08] MEDS: LORATADINE 10 MG TAB PO SCH (09:12)
[2018-10-08] MEDS: HEPARIN SODIUM,PORCINE 5,000 UNIT/ML 1 ML VIAL SQ SCH (09:13)
[2018-10-08 11:40] LABS: Glucose,Whole Blood 173 mg/dL (75-99)
[2018-10-08 13:06] VITALS: TEMP 98.7
--- NOTE | 2018-10-08 13:10 | CONS ---
CONSULTATION DATE OF SERVICE: 10/08/2018 REASON FOR CONSULTATION: Antibiotic for discharge. HISTORY OF PRESENT ILLNESS: The patient is a 42-year-old female with past medical history significant for diabetes mellitus, having a cold-like symptoms mostly with head congestion, some sore throat and occasional cough and postnasal drainage for which the patient did go to an Urgent Care and the patient noticed to have elevated heart rate of 140. Subsequently, the patient has been advised to go to the ER. The patient was complaining of some difficulty swallowing as well. The patient did have a CT of the neck completed, shows mild anterior and posterior bilateral cervical lymphadenopathy and no evidence of any abscess. Normal epiglottis. The patient did have a chest x-ray which was negative for any acute infiltrate. The patient has been having low fever of 100.3 on presentation, subsequently afebrile. The patient has been treated with Unasyn 3 g q.6 hours and workup so far including a throat culture positive for Streptococcus pyogenes. Blood culture has been negative. The patient did have elevated pressure of 102/85 for admission that has showed overall improvement. Subsequently, I was asked to see the patient for discharge antibiotic recommendation. Patient did show overall improvement of symptomatology as far as the cold, congestion and sore throat is concerned. REVIEW OF SYSTEMS: Positive points have been mentioned in HPI. Rest of systems are negative. PAST MEDICAL HISTORY: Diabetes mellitus. PAST SURGICAL HISTORY: Hernia repair, tonsillectomy, . SOCIAL HISTORY: No history of smoking, drinking, drug use. FAMILY HISTORY: No pertinent points are noticed. ALLERGIES: TYLENOL, HYDROCODONE. MEDICATIONS: The patient is currently on Unasyn 3 g q.6, Catapres, heparin, hydralazine, Motrin, NovoLog, Levemir, Claritin, Lopressor, Zofran, Protonix, Restoril. PHYSICAL EXAMINATION: Blood pressure 121/74, pulse of 96, temperature 98.6, she is 97% on room air. General description is a middle-aged female, up in the bed in no distress. HEENT: Examination slight pallor. No scleral icterus. Oral mucosa is moist with minimal erythema. NECK: Trachea central, no thyromegaly. LUNGS: Unlabored breathing, clear to auscultation anteriorly. HEART: S1, S2. Regular rate and rhythm. ABDOMEN: Soft, no tenderness. EXTREMITIES: Not edema of the feet. SKIN: Examination show no rash or mass palpable. NEUROLOGIC: Patient is awake, alert, oriented x3. Mood and affect normal. LABS: Hemoglobin 9.8, white count 9.5. BUN of 8, creatinine 0.49. Blood culture positive for Streptococcus pyogenes. DIAGNOSTIC IMPRESSION: Patient with upper respiratory symptoms, especially with sore throat and congestion. This patient; however, did have evidence of Streptococcus pyogenes, pharyngitis. CT was negative for any abscess and the patient showed overall improvement on the Unasyn. PLAN: 1. We will adjust antibiotic therapy to Augmentin 875 b.i.d. for 10 days. Prescription to be sent to the pharmacy. 2. Close outpatient followup. Family at the bedside, their questions were answered. MMODL / IJN: [id number] /
[2018-10-08 13:38] VITALS: BP 177/94; PULSE 96; RESP 18
[2018-10-08] MEDS: cloNIDine HCL 0.1 MG TAB PO PRN (13:38)
--- NOTE | 2018-10-08 18:38 | ECHOF ---
Referral Reason:Stroke MEASUREMENTS -------- HEIGHT: 170.2 cm WEIGHT: 88.5 kg BP: 132/88 IVSd: 1.3 cm (0.6 - 1.1) LVIDd: 4.2 cm (3.9 - 5.3) LVPWd: 1.4 cm (0.6 - 1.1) IVSs: 1.6 cm LVIDs: 3.6 cm LVPWs: 1.5 cm LA Diam: 3.5 cm (2.7 - 3.8) LAESV Index (A-L): 23.17 ml/m Ao Diam: 2.5 cm (2.0 - 3.7) LA Diam: 3.7 cm (2.7 - 3.8) AV Cusp: 1.6 cm (1.5 - 2.6) EPSS: 1.0 cm MV E José: 0.68 m/s MV DecT: 189 ms MV A José: 0.67 m/s MV E/A Ratio: 1.02 RAP: 5.00 mmHg RVSP: 11.77 mmHg MV EF SLOPE: 72.22 mm/s (70 - 150) MV EXCURSION: 12.84 mm (> 18.000) FINDINGS -------- Sinus rhythm. This was a techncally difficult study with suboptimal views, , Lumason utilized for enhancement of im ages. The left ventricular size is normal. There is borderline concentric left ventricular hypertrophy. Overall left ventricular systolic function is low-normal with, an EF between 50 - 55 %. The diasto lic filling pattern is normal for the age of the patient 9.36. The right ventricle is normal in size. The left atrial size is normal. Normal LA size by volume 22+/-6 ml/m2. The right atrial size is normal. 5.0mg OF Lumason UTLIZED: 2 OR MORE WALL SEGMENTS NOT VISUALIZED. There is mild aortic valve sclerosis. There is no evidence of aortic regurgitation. Mild mitral annular calcification present. Mild mitral regurgitation is present. Mild tricuspid regurgitation present. There is no evidence of pulmonary hypertension. The right v entricular systolic pressure, as measured by Doppler, is 11.77mmHg. There is no pulmonic regurgitation present. The aortic root size is normal. There is no pericardial effusion. CONCLUSIONS -------- 1. Sinus rhythm. 2. This was a techncally difficult study with suboptimal views, , Lumason utilized for enhancement of images. 3. The left ventricular size is normal. 4. There is borderline concentric left ventricular hypertrophy. 5. Overall left ventricular systolic function is low-normal with, an EF between 50 - 55 %. 6. The diastolic filling pattern is normal for the age of the patient 9.36 7. The right ventricle is normal in size. 8. The left atrial size is normal. 9. Normal LA size by volume 22+/-6 ml/m2. 10. The right atrial size is normal. 11. 5.0mg OF Lumason UTLIZED: 2 OR MORE WALL SEGMENTS NOT VISUALIZED. 12. There is mild aortic valve sclerosis. 13. Mild mitral annular calcification present. 14. Mild mitral regurgitation is present. 15. Mild tricuspid regurgitation present. 16. There is no evidence of pulmonary hypertension. 17. The right ventricular systolic pressure, as measured by Doppler, is 11.77mmHg. 18. There is no pulmonic regurgitation present. 19. The aortic root size is normal. 20. There is no pericardial effusion. STOCK PATCH SAWYER: Sera Sutton RDCS
--- NOTE | 2018-10-09 00:10 | DS ---
DISCHARGE SUMMARY DATE OF SERVICE: 10/08/2018. FINAL DIAGNOSES: 1. Acute gastroesophageal reflux disease. 2. Diabetic ketoacidosis with diabetes type 2 exacerbation with hyperglycemia. 3. Uncontrolled diabetes type 2. 4. Increased WBC. 5. Group A strep pyogenes from the throat cultures. 6. Acute purulent tracheobronchitis. 7. History of noncompliance. 8. Tachycardia. 9. Hypertension. 10.History of coronary artery disease. 11.History of hernia repair. 12.History of tonsillectomy. DISCHARGE DISPOSITION: The patient being discharged in stable condition with guarded prognosis. HISTORY OF PRESENT ILLNESS: This 42-year-old woman with a past medical history of multiple medical problems was admitted with diabetes type 2 uncontrolled with hyperglycemia with acute diabetic ketosis, patient noncompliant with medications. Patient treated with insulin drip and subsequent insulin was at the transition. The patient improved significantly. Two-D echo with Doppler was done. Cultures as mentioned earlier. A 2D echo with Doppler showed ejection fraction 50-55% and mild minimal valvular abnormalities. On exam, vitals signs are stable. Cardiovascular: S1, S2. Abdomen soft. Nervous system: No focal deficits. DISCHARGE ADVICE AND MEDICATIONS: 1. Discharge diet is cardiac diet. 2. Activity limited until followup. 3. Follow up with Dr. Wesley 2-3 days. 4. Follow up with Cardiology as recommended. DISCHARGE MEDICATIONS: 1. Ibuprofen 400 mg q.6 p.r.n. 2. Zyrtec 10 mg p.o. 3. Augmentin 875 mg 1 p.o. b.i.d. 4. Insulin p.r.n. 5. Levemir 50 units subcu q.h.s. 6. Lopressor 50 mg p.o. b.i.d. Once again the patient will be discharged in stable condition with guarded prognosis. MMODL / IJN: [id number] /
== END 2018-10-08 14:10 | disposition home or self-care (01) | DRG 639 ==
LOC: EC 17:52 → 3SCARD 22:01
PROVIDERS: ADMIT Hospitalist; ATTEND Hospitalist
DX: E11.10 Type 2 diabetes mellitus with ketoacidosis without coma (principal); I10 Essential (primary) hypertension; J20.9 Acute bronchitis, unspecified; B95.0 Streptococcus, group A, as the cause of diseases classified elsewhere; I25.10 Atherosclerotic heart disease of native coronary artery without angina pectoris; K21.9 Gastro-esophageal reflux disease without esophagitis; R13.10 Dysphagia, unspecified; Z79.899 Other long term (current) drug therapy; Z91.14 Patient's other noncompliance with medication regimen; Z91.19 Patient's noncompliance with other medical treatment and regimen; R00.0 Tachycardia, unspecified; T44.995A Adverse effect of other drug primarily affecting the autonomic nervous system, initial encounter; Z88.5 Allergy status to narcotic agent
CPT/HCPCS: 36415; 70491; 71046; 80048; 80051; 80053; 81001; 82009; 83036; 83605; 83735; 84443; 85025; 85610; 85730; 87040; 87081; 87430; 93005; 93306; 96361; 96365; 96366; 99285

== ENCOUNTER → 2018-11-02 | Outpatient (CLI) | payer OTHER ==
[2018-11-02 10:48] LABS: Basophils # (A) 0.3 k/uL (0-0.2); Basophils % (A) 3 %; Eosinophils # (A) 0.3 k/uL (0-0.7); Eosinophils % (A) 3 %; HCT 39.9 % (34.0-46.0); Hypochromasia Slight; Lymphocytes # (A) 3.1 k/uL (1.0-4.8); Lymphocytes % (A) 37 %; MCH 25.8 pg (25.0-35.0); MCHC 32.2 g/dL (31.0-37.0); Mean Platelet Volume 7.7; Monocytes # (A) 0.5 k/uL (0-1.0); Monocytes % (A) 6 %; Neutrophils % (A) 48 %; Platelet Count 379 k/uL (150-450); RBC 4.98 m/uL (3.80-5.40); RDW 13.8 % (11.5-15.5); WBC 8.3 k/uL (3.8-10.6)
[2018-11-02 10:49] LABS: HGB 12.9 gm/dL (11.4-16.0)
[2018-11-02 16:30] LABS: African American GFR (CKD) 123.9 (60.0-200.0); Anion Gap 10.6 mmol/L (4.00-12.00); Calcium 9.5 mg/dL (8.7-10.3); Carbon Dioxide 26.4 mmol/L (21.6-31.8); Chol/HDL Ratio 4.34; LDL Cholesterol,Calculated 156.2 mg/dL (0.0-131.0); Potassium 4.4 mmol/L (3.5-5.5); VLDL Calculation 30.8 mg/dL (5.00-40.00)
== END | disposition home or self-care (01) ==
LOC: LABWHC1 08:04
PROVIDERS: ATTEND Hospitalist
DX: I10 Essential (primary) hypertension (principal); E11.9 Type 2 diabetes mellitus without complications
CPT/HCPCS: 36415; 80048; 80061; 85025

== ENCOUNTER 2020-09-22 21:31 | Emergency (ER) | payer OTHER ==
[2020-09-22] MEDS ORDERED: SODIUM CHLORIDE 0.9% 1,000 ML IV STA (22:09)
[2020-09-22] MEDS ORDERED: FAMOTIDINE 20 MG/2 ML VIAL IV STA (22:33)
[2020-09-22] MEDS ORDERED: ONDANSETRON 4 MG/2 ML VIAL IVP STA (22:33)
--- NOTE | 2020-09-22 22:37 | ED ---
Abdominal Pain HPI - General Chief Complaint: Abdominal Pain Stated Complaint: Abd pain Source: patient, RN notes reviewed Mode of arrival: ambulatory Limitations: no limitations - History of Present Illness Initial Comments: 44-year-old white female patient presents to the emergency room with complaints of 3 days of abdominal pain. Patient states that it started on day one with slight cough and then she developed some lower abdominal pain. She thought that the lower abdominal pain was related to some much coughing but it now radiates into her epigastric area. She describes it as cramping. She states that the pain now radiates into her back. she's had just a couple episodes of vomiting, nonbilious nonbloody and is now dry heaves. She denies any fevers. MD Complaint: abdominal pain -: days(s) (3) Location: diffuse Radiation: back Migration to: no migration Severity scale (1-10): 9 Quality: cramping Consistency: constant Improves With: nothing Worsens With: nothing Associated Symptoms: nausea, vomiting, diarrhea, other (cough) - Related Data Home Medications Medication Instructions Recorded Confirmed metFORMIN HCL [Glucophage] 1,000 mg PO BID 11/13/18 09/22/20 Lisinopril [Prinivil] 10 mg PO DAILY 09/22/20 09/22/20 Previous Rx's Medication Instructions Recorded Insulin Detemir (Levemir) [Levemir] 50 unit SQ HS #30 syr 10/08/18 Metoprolol Tartrate [Lopressor] 50 mg PO BID #60 tab 10/08/18 Allergies Allergy/AdvReac Type Severity Reaction Status Date / Time coconut Allergy Unknown Verified 09/22/20 22:50 palm oil Allergy Unknown Verified 09/22/20 22:50 acetaminophen [From [place]] AdvReac HEADACHE Verified 09/22/20 22:50 hydrocodone [From [place]] AdvReac HEADACHE Verified 09/22/20 22:50 Review of Systems ROS Statement: Those systems with pertinent positive or pertinent negative responses have been documented in the HPI. ROS Other: All systems not noted in ROS Statement are negative. Past Medical History Past Medical History: Diabetes Mellitus, Hyperlipidemia, Hypertension History of Any Multi-Drug Resistant Organisms: None Reported Past Surgical History: Section, Hernia Repair, Tonsillectomy Past Psychological History: No Psychological Hx Reported Smoking Status: Never smoker Past Alcohol Use History: None Reported Past Drug Use History: None Reported General Exam Limitations: no limitations General appearance: alert, in no apparent distress Head exam: Present: atraumatic, normocephalic, normal inspection Eye exam: Present: normal appearance, PERRL, EOMI. Absent: scleral icterus, conjunctival injection, periorbital swelling ENT exam: Present: normal exam, normal oropharynx, mucous membranes moist Neck exam: Present: normal inspection, full ROM. Absent: tenderness, meningismus, lymphadenopathy, thyromegaly Respiratory exam: Present: normal lung sounds bilaterally. Absent: respiratory distress, wheezes, rales, rhonchi, stridor, chest wall tenderness, accessory muscle use Cardiovascular Exam: Present: tachycardia. Absent: JVD GI/Abdominal exam: Present: soft, normal bowel sounds. Absent: distended, tenderness, guarding, rebound, rigid, mass Extremities exam: Present: normal inspection, full ROM, normal capillary refill. Absent: tenderness, pedal edema, joint swelling, calf tenderness Back exam: Present: normal inspection, full ROM, CVA tenderness (R), CVA tenderness (L). Absent: tenderness, muscle spasm, paraspinal tenderness, vertebral tenderness Neurological exam: Present: alert, oriented X3, CN II-XII intact, normal gait Psychiatric exam: Present: normal affect, normal mood Skin exam: Present: warm, dry, intact, normal color. Absent: rash, cyanosis, diaphoretic, erythema, petechiae, pallor, mottled Course Vital Signs 09/22/20 09/23/20 09/23/20 22:00 06:09 07:48 Temperature 98.6 F 98.4 F Pulse Rate 122 H 121 H 120 H Respiratory 20 20 18 Rate Blood Pressure 121/66 142/79 117/69 O2 Sat by Pulse 98 98 99 Oximetry 09/23/20 09/23/20 09/23/20 10:18 11:04 13:23 Temperature Pulse Rate 128 H 128 H 120 H Respiratory 18 15 22 Rate Blood Pressure 113/71 129/89 128/97 O2 Sat by Pulse 98 98 98 Oximetry 09/23/20 15:45 Temperature Pulse Rate 123 H Respiratory 18 Rate Blood Pressure 156/90 O2 Sat by Pulse 96 Oximetry Medical Decision Making - Medical Decision Making Care turned over to Dr Tang pending CT. - Lab Data Result diagrams: 09/23/20 14:01 09/23/20 14:01 Lab Results 09/22/20 09/22/20 09/22/20 Range/Units 23:00 23:00 23:00 WBC 15.4 H (3.8-10.6) k/uL RBC 3.74 L (3.80-5.40) m/uL Hgb 8.2 L (11.4-16.0) gm/dL Hct 28.0 L (34.0-46.0) % MCV 74.9 L (80.0-100.0) fL MCH 21.8 L (25.0-35.0) pg MCHC 29.1 L (31.0-37.0) g/dL RDW 15.4 (11.5-15.5) % Plt Count 640 H (150-450) k/uL MPV 7.6 Neutrophils % 79 % Lymphocytes % 12 % Monocytes % 6 % Eosinophils % 0 % Basophils % 0 % Neutrophils # 12.2 H (1.3-7.7) k/uL Lymphocytes # 1.9 (1.0-4.8) k/uL Monocytes # 0.9 (0-1.0) k/uL Eosinophils # 0.0 (0-0.7) k/uL Basophils # 0.1 (0-0.2) k/uL Hypochromasia Marked Poikilocytosis Slight Microcytosis Slight APTT (22.0-30.0) sec Sodium 128 L (137-145) mmol/L Potassium 4.8 (3.5-5.1) mmol/L Chloride 96 L (98-107) mmol/L Carbon Dioxide 20 L (22-30) mmol/L Anion Gap 12 mmol/L BUN 23 H (7-17) mg/dL Creatinine 0.87 (0.52-1.04) mg/dL Est GFR (CKD-EPI)AfAm >90 (>60 ml/min/1.73 sqM) Est GFR (CKD-EPI)NonAf 82 (>60 ml/min/1.73 sqM) Glucose 297 H (74-99) mg/dL POC Glucose (mg/dL) (75-99) mg/dL POC Glu Wire Lather ID Lactic Ac Sepsis Rflx Plasma Lactic Acid James 2.2 H* (0.7-2.0) mmol/L Calcium 8.3 L (8.4-10.2) mg/dL Total Bilirubin 0.4 (0.2-1.3) mg/dL AST 51 H (14-36) U/L ALT 62 H (4-34) U/L Alkaline Phosphatase 155 H (38-126) U/L Total Protein 7.1 (6.3-8.2) g/dL Albumin 3.6 (3.5-5.0) g/dL Amylase 38 (30-110) U/L Lipase 65 (23-300) U/L Urine Color Urine Appearance (Clear) Urine pH (5.0-8.0) Ur Specific [place] (1.001-1.035) Urine Protein (Negative) Urine Glucose (UA) (Negative) Urine Ketones (Negative) Urine Blood (Negative) Urine Nitrite (Negative) Urine Bilirubin (Negative) Urine Urobilinogen (<2.0) mg/dL Ur Leukocyte Esterase (Negative) Urine RBC (0-5) /hpf Urine WBC (0-5) /hpf Ur Squamous Epith Cells (0-4) /hpf Urine HCG, Qual (Not Detectd) Coronavirus (PCR) (Not Detectd) 09/23/20 09/23/20 09/23/20 Range/Units 01:53 05:24 06:57 WBC (3.8-10.6) k/uL RBC (3.80-5.40) m/uL Hgb (11.4-16.0) gm/dL Hct (34.0-46.0) % MCV (80.0-100.0) fL MCH (25.0-35.0) pg MCHC (31.0-37.0) g/dL RDW (11.5-15.5) % Plt Count (150-450) k/uL MPV Neutrophils % % Lymphocytes % % Monocytes % % Eosinophils % % Basophils % % Neutrophils # (1.3-7.7) k/uL Lymphocytes # (1.0-4.8) k/uL Monocytes # (0-1.0) k/uL Eosinophils # (0-0.7) k/uL Basophils # (0-0.2) k/uL Hypochromasia Poikilocytosis Microcytosis APTT (22.0-30.0) sec Sodium (137-145) mmol/L Potassium (3.5-5.1) mmol/L Chloride (98-107) mmol/L Carbon Dioxide (22-30) mmol/L Anion Gap mmol/L BUN (7-17) mg/dL Creatinine (0.52-1.04) mg/dL Est GFR (CKD-EPI)AfAm (>60 ml/min/1.73 sqM) Est GFR (CKD-EPI)NonAf (>60 ml/min/1.73 sqM) Glucose (74-99) mg/dL POC Glucose (mg/dL) (75-99) mg/dL POC Glu Wire Lather ID Lactic Ac Sepsis Rflx Y Plasma Lactic Acid James 1.4 (0.7-2.0) mmol/L Calcium (8.4-10.2) mg/dL Total Bilirubin (0.2-1.3) mg/dL AST (14-36) U/L ALT (4-34) U/L Alkaline Phosphatase (38-126) U/L Total Protein (6.3-8.2) g/dL Albumin (3.5-5.0) g/dL Amylase (30-110) U/L Lipase (23-300) U/L Urine Color Urine Appearance (Clear) Urine pH (5.0-8.0) Ur Specific [place] (1.001-1.035) Urine Protein (Negative) Urine Glucose (UA) (Negative) Urine Ketones (Negative) Urine Blood (Negative) Urine Nitrite (Negative) Urine Bilirubin (Negative) Urine Urobilinogen (<2.0) mg/dL Ur Leukocyte Esterase (Negative) Urine RBC (0-5) /hpf Urine WBC (0-5) /hpf Ur Squamous Epith Cells (0-4) /hpf Urine HCG, Qual (Not Detectd) Coronavirus (PCR) Not Detected (Not Detectd) 09/23/20 09/23/20 09/23/20 Range/Units 08:40 08:40 09:36 WBC (3.8-10.6) k/uL RBC (3.80-5.40) m/uL Hgb (11.4-16.0) gm/dL Hct (34.0-46.0) % MCV (80.0-100.0) fL MCH (25.0-35.0) pg MCHC (31.0-37.0) g/dL RDW (11.5-15.5) % Plt Count (150-450) k/uL MPV Neutrophils % % Lymphocytes % % Monocytes % % Eosinophils % % Basophils % % Neutrophils # (1.3-7.7) k/uL Lymphocytes # (1.0-4.8) k/uL Monocytes # (0-1.0) k/uL Eosinophils # (0-0.7) k/uL Basophils # (0-0.2) k/uL Hypochromasia Poikilocytosis Microcytosis APTT 86.8 H (22.0-30.0) sec Sodium (137-145) mmol/L Potassium (3.5-5.1) mmol/L Chloride (98-107) mmol/L Carbon Dioxide (22-30) mmol/L Anion Gap mmol/L BUN (7-17) mg/dL Creatinine (0.52-1.04) mg/dL Est GFR (CKD-EPI)AfAm (>60 ml/min/1.73 sqM) Est GFR (CKD-EPI)NonAf (>60 ml/min/1.73 sqM) Glucose (74-99) mg/dL POC Glucose (mg/dL) (75-99) mg/dL POC Glu Wire Lather ID Lactic Ac Sepsis Rflx Plasma Lactic Acid James (0.7-2.0) mmol/L Calcium (8.4-10.2) mg/dL Total Bilirubin (0.2-1.3) mg/dL AST (14-36) U/L ALT (4-34) U/L Alkaline Phosphatase (38-126) U/L Total Protein (6.3-8.2) g/dL Albumin (3.5-5.0) g/dL Amylase (30-110) U/L Lipase (23-300) U/L Urine Color Yellow Urine Appearance Clear (Clear) Urine pH 6.0 (5.0-8.0) Ur Specific [place] >1.050 H (1.001-1.035) Urine Protein 3+ H (Negative) Urine Glucose (UA) 3+ H (Negative) Urine Ketones 1+ H (Negative) Urine Blood Trace H (Negative) Urine Nitrite Negative (Negative) Urine Bilirubin Negative (Negative) Urine Urobilinogen <2.0 (<2.0) mg/dL Ur Leukocyte Esterase Negative (Negative) Urine RBC 4 (0-5) /hpf Urine WBC 1 (0-5) /hpf Ur Squamous Epith Cells 4 (0-4) /hpf Urine HCG, Qual Not Detected (Not Detectd) Coronavirus (PCR) (Not Detectd) 09/23/20 09/23/20 09/23/20 Range/Units 09:53 11:23 13:33 WBC (3.8-10.6) k/uL RBC (3.80-5.40) m/uL Hgb (11.4-16.0) gm/dL Hct (34.0-46.0) % MCV (80.0-100.0) fL MCH (25.0-35.0) pg MCHC (31.0-37.0) g/dL RDW (11.5-15.5) % Plt Count (150-450) k/uL MPV Neutrophils % % Lymphocytes % % Monocytes % % Eosinophils % % Basophils % % Neutrophils # (1.3-7.7) k/uL Lymphocytes # (1.0-4.8) k/uL Monocytes # (0-1.0) k/uL Eosinophils # (0-0.7) k/uL Basophils # (0-0.2) k/uL Hypochromasia Poikilocytosis Microcytosis APTT (22.0-30.0) sec Sodium (137-145) mmol/L Potassium (3.5-5.1) mmol/L Chloride (98-107) mmol/L Carbon Dioxide (22-30) mmol/L Anion Gap mmol/L BUN (7-17) mg/dL Creatinine (0.52-1.04) mg/dL Est GFR (CKD-EPI)AfAm (>60 ml/min/1.73 sqM) Est GFR (CKD-EPI)NonAf (>60 ml/min/1.73 sqM) Glucose (74-99) mg/dL POC Glucose (mg/dL) 413 H 353 H 346 H (75-99) mg/dL POC Glu Wire Lather Amy Vasquez Moore, Amy Nix Lactic Ac Sepsis Rflx Plasma Lactic Acid James (0.7-2.0) mmol/L Calcium (8.4-10.2) mg/dL Total Bilirubin (0.2-1.3) mg/dL AST (14-36) U/L ALT (4-34) U/L Alkaline Phosphatase (38-126) U/L Total Protein (6.3-8.2) g/dL Albumin (3.5-5.0) g/dL Amylase (30-110) U/L Lipase (23-300) U/L Urine Color Urine Appearance (Clear) Urine pH (5.0-8.0) Ur Specific [place] (1.001-1.035) Urine Protein (Negative) Urine Glucose (UA) (Negative) Urine Ketones (Negative) Urine Blood (Negative) Urine Nitrite (Negative) Urine Bilirubin (Negative) Urine Urobilinogen (<2.0) mg/dL Ur Leukocyte Esterase (Negative) Urine RBC (0-5) /hpf Urine WBC (0-5) /hpf Ur Squamous Epith Cells (0-4) /hpf Urine HCG, Qual (Not Detectd) Coronavirus (PCR) (Not Detectd) 09/23/20 09/23/20 09/23/20 Range/Units 14:01 14:01 17:15 WBC 25.5 H (3.8-10.6) k/uL RBC 4.06 (3.80-5.40) m/uL Hgb 9.1 L (11.4-16.0) gm/dL Hct 31.2 L (34.0-46.0) % MCV 76.9 L (80.0-100.0) fL MCH 22.4 L (25.0-35.0) pg MCHC 29.2 L (31.0-37.0) g/dL RDW 15.4 (11.5-15.5) % Plt Count 579 H (150-450) k/uL MPV 7.6 Neutrophils % 85 % Lymphocytes % 9 % Monocytes % 5 % Eosinophils % 1 % Basophils % 0 % Neutrophils # 21.5 H (1.3-7.7) k/uL Lymphocytes # 2.3 (1.0-4.8) k/uL Monocytes # 1.2 H (0-1.0) k/uL Eosinophils # 0.1 (0-0.7) k/uL Basophils # 0.1 (0-0.2) k/uL Hypochromasia Marked Poikilocytosis Slight Microcytosis Slight APTT (22.0-30.0) sec Sodium 129 L (137-145) mmol/L Potassium 4.8 (3.5-5.1) mmol/L Chloride 100 (98-107) mmol/L Carbon Dioxide 16 L (22-30) mmol/L Anion Gap 13 mmol/L BUN 31 H (7-17) mg/dL Creatinine 1.08 H (0.52-1.04) mg/dL Est GFR (CKD-EPI)AfAm 72 (>60 ml/min/1.73 sqM) Est GFR (CKD-EPI)NonAf 63 (>60 ml/min/1.73 sqM) Glucose 355 H (74-99) mg/dL POC Glucose (mg/dL) 372 H (75-99) mg/dL POC Glu Wire Lather ID Reymundo Garcia Lactic Ac Sepsis Rflx Plasma Lactic Acid James (0.7-2.0) mmol/L Calcium 7.1 L (8.4-10.2) mg/dL Total Bilirubin (0.2-1.3) mg/dL AST (14-36) U/L ALT (4-34) U/L Alkaline Phosphatase (38-126) U/L Total Protein (6.3-8.2) g/dL Albumin (3.5-5.0) g/dL Amylase (30-110) U/L Lipase (23-300) U/L Urine Color Urine Appearance (Clear) Urine pH (5.0-8.0) Ur Specific [place] (1.001-1.035) Urine Protein (Negative) Urine Glucose (UA) (Negative) Urine Ketones (Negative) Urine Blood (Negative) Urine Nitrite (Negative) Urine Bilirubin (Negative) Urine Urobilinogen (<2.0) mg/dL Ur Leukocyte Esterase (Negative) Urine RBC (0-5) /hpf Urine WBC (0-5) /hpf Ur Squamous Epith Cells (0-4) /hpf Urine HCG, Qual (Not Detectd) Coronavirus (PCR) (Not Detectd) 09/23/20 Range/Units 17:36 WBC (3.8-10.6) k/uL RBC (3.80-5.40) m/uL Hgb (11.4-16.0) gm/dL Hct (34.0-46.0) % MCV (80.0-100.0) fL MCH (25.0-35.0) pg MCHC (31.0-37.0) g/dL RDW (11.5-15.5) % Plt Count (150-450) k/uL MPV Neutrophils % % Lymphocytes % % Monocytes % % Eosinophils % % Basophils % % Neutrophils # (1.3-7.7) k/uL Lymphocytes # (1.0-4.8) k/uL Monocytes # (0-1.0) k/uL Eosinophils # (0-0.7) k/uL Basophils # (0-0.2) k/uL Hypochromasia Poikilocytosis Microcytosis APTT 43.8 H (22.0-30.0) sec Sodium (137-145) mmol/L Potassium (3.5-5.1) mmol/L Chloride (98-107) mmol/L Carbon Dioxide (22-30) mmol/L Anion Gap mmol/L BUN (7-17) mg/dL Creatinine (0.52-1.04) mg/dL Est GFR (CKD-EPI)AfAm (>60 ml/min/1.73 sqM) Est GFR (CKD-EPI)NonAf (>60 ml/min/1.73 sqM) Glucose (74-99) mg/dL POC Glucose (mg/dL) (75-99) mg/dL POC Glu Wire Lather ID Lactic Ac Sepsis Rflx Plasma Lactic Acid James (0.7-2.0) mmol/L Calcium (8.4-10.2) mg/dL Total Bilirubin (0.2-1.3) mg/dL AST (14-36) U/L ALT (4-34) U/L Alkaline Phosphatase (38-126) U/L Total Protein (6.3-8.2) g/dL Albumin (3.5-5.0) g/dL Amylase (30-110) U/L Lipase (23-300) U/L Urine Color Urine Appearance (Clear) Urine pH (5.0-8.0) Ur Specific [place] (1.001-1.035) Urine Protein (Negative) Urine Glucose (UA) (Negative) Urine Ketones (Negative) Urine Blood (Negative) Urine Nitrite (Negative) Urine Bilirubin (Negative) Urine Urobilinogen (<2.0) mg/dL Ur Leukocyte Esterase (Negative) Urine RBC (0-5) /hpf Urine WBC (0-5) /hpf Ur Squamous Epith Cells (0-4) /hpf Urine HCG, Qual (Not Detectd) Coronavirus (PCR) (Not Detectd) Disposition Clinical Impression: Superior mesenteric vein thrombosis Disposition: OTHER INSTITUTION NOT DEFINED Condition: Fair Referrals: Mónica Romero MD [Primary Care Provider] - 1-2 days Decision Date: 09/23/20 - Out of Hospital Transfer - Req. Specs Out of Hospital Transfer - Requested Specifics: Other Emergency Center ([facility])
[2020-09-22] MEDS ORDERED: KETOROLAC 15 MG/ML 1 ML VIAL IVP STA (23:01)
[2020-09-23] MEDS ORDERED: KETOROLAC 15 MG/ML 1 ML VIAL ONE (00:04)
--- NOTE | 2020-09-23 05:04 | XR ---
EXAMINATION TYPE: XR chest 2V DATE OF EXAM: 09/22/2020 COMPARISON: 10/05/2018 HISTORY: Chest pain TECHNIQUE: 2 views FINDINGS: Heart and mediastinum are normal. Lungs are clear. Diaphragm is normal. Bony thorax is inta ct. IMPRESSION: Normal chest. No change.
[2020-09-23 05:17] LABS: Basophils # (A) 0.1 k/uL (0-0.2); Basophils % (A) 0 %; Eosinophils % (A) 0 %; HGB 8.2 gm/dL (11.4-16.0); Hypochromasia Marked; Lymphocytes # (A) 1.9 k/uL (1.0-4.8); Lymphocytes % (A) 12 %; MCH 21.8 pg (25.0-35.0); MCHC 29.1 g/dL (31.0-37.0); MCV 74.9 fL (80.0-100.0); Mean Platelet Volume 7.6; Microcytosis Slight; Monocytes # (A) 0.9 k/uL (0-1.0); Monocytes % (A) 6 %; Neutrophils # (A) 12.2 k/uL (1.3-7.7); Neutrophils % (A) 79 %; Platelet Count 640 k/uL (150-450); Poikilocytosis Slight; RBC 3.74 m/uL (3.80-5.40); RDW 15.4 % (11.5-15.5); WBC 15.4 k/uL (3.8-10.6)
[2020-09-23 05:23] LABS: ALT 62 U/L (4-34); AST 51 U/L (14-36); African American GFR (CKD) >90 (>60 ml/min/1.73 sqM); Albumin 3.6 g/dL (3.5-5.0); Alkaline Phosphatase 155 U/L (38-126); Amylase 38 U/L (30-110); Anion Gap 12 mmol/L; Blood Urea Nitrogen 23 mg/dL (7-17); Calcium 8.3 mg/dL (8.4-10.2); Carbon Dioxide 20 mmol/L (22-30); Chloride 96 mmol/L (98-107); Glucose 297 mg/dL (74-99); Lipase 65 U/L (23-300); Non-African American GFR(CKD) 82 (>60 ml/min/1.73 sqM); Potassium 4.8 mmol/L (3.5-5.1); Sodium 128 mmol/L (137-145); Total Bilirubin 0.4 mg/dL (0.2-1.3); Total Protein 7.1 g/dL (6.3-8.2)
[2020-09-23] MEDS ORDERED: HEPARIN SODIUM 1,000 UN/ML (10ML VL) IV PRN (07:48)
[2020-09-23] MEDS ORDERED: MORPHINE SULFATE 4 MG/ML SYRINGE IVP STA (07:51)
[2020-09-23] MEDS ORDERED: ONDANSETRON 4 MG/2 ML VIAL IVP STA (07:51)
[2020-09-23] MEDS: HEPARIN SOD,PORK IN 0.45% NACL 25,000 UNIT in 0.45% NACL 1 250ML.BAG IV SCH ×2 (08:16→18:12)
--- NOTE | 2020-09-23 08:17 | CT ---
EXAMINATION TYPE: CT abdomen pelvis w con DATE OF EXAM: 09/23/2020 COMPARISON: None HISTORY: Abdominal pain CONTRAST: CT scan of the abdomen and pelvis is performed without Oral Contrast and with IV Contrast, patient in jected with 100 mL of Isovue 300. FINDINGS: LUNG BASES-: No visible nodule. No infiltrate. LIVER/GB: No calcified gallstones. No space occupying hepatic lesion. Biliary tree is of normal ca liber. PANCREAS: No inflammation. No distinct mass. SPLEEN: No splenic enlargement. No lesion seen. ADRENALS: No nodule. No thickening. KIDNEYS/BLADDER: No hydronephrosis. No nephrolithiasis. No distinct renal mass. Urinary bladder g rossly unremarkable. BOWEL: There is moderate ascites throughout the abdomen and pelvis. There is also wall thickening inv olving the virtually all of the visualized small bowel loops as well as the colon. The findings are n onspecific and may reflect nonspecific enterocolitis with differential diagnostic possibilities inclu ding infectious and inflammatory processes. Nonvisualization of the appendix. There is filling defect in the region of the superior mesenteric vein and portal confluence with with venous dilatation. SMV thrombosis is not excluded. GENITAL ORGANS: No gross abnormality. LYMPH NODES: No greater than 1cm abdominal or pelvic lymph nodes are appreciated. AORTA: No significant abnormality. OSSEOUS STRUCTURES: No significant abnormality is seen. OTHER: No significant additional abnormality is seen. IMPRESSION: 1. Findings are suspicious for superior mesenteric vein thrombosis with ascites, small bowel wall thi ckening and colonic wall thickening. Enterocolitis of other etiology is not excluded however. Strict clinical correlation is advised.
[2020-09-23 09:28] LABS: Appearance,Urine Clear (Clear); Bilirubin,Urine Negative (Negative); Blood,Urine Trace (Negative); Color,Urine Yellow; Glucose,Urine (UA) 3+ (Negative); Ketones,Urine 1+ (Negative); Leukocyte Esterase,Urine Negative (Negative); Nitrite,Urine Negative (Negative); Protein,Urine 3+ (Negative); RBC,Urine 4 /hpf (0-5); Squamous Epithelial Cell,Urine 4 /hpf (0-4); Urobilinogen,Urine <2.0 mg/dL (<2.0); WBC,Urine 1 /hpf (0-5)
[2020-09-23 09:47] LABS: Specific Gravity,Urine >1.050 (1.001-1.035)
[2020-09-23] MEDS ORDERED: INSULIN REGULAR 100 UNIT/ML VIAL (IV) IV ONE (09:56)
[2020-09-23] MEDS ORDERED: SODIUM CHLORIDE 0.9% 1,000 ML IV STA (10:03)
[2020-09-23 10:04] LABS: Glucose,Whole Blood 413 mg/dL (75-99)
[2020-09-23 11:25] LABS: Glucose,Whole Blood 353 mg/dL (75-99)
[2020-09-23] MEDS: AMPICILLIN-SULBACTAM 3 GM in SODIUM CHLORIDE 0.9% 100 ML IVPB SCH ×2 (12:58→18:15)
[2020-09-23 13:43] LABS: Glucose,Whole Blood 346 mg/dL (75-99)
[2020-09-23 14:08] LABS: Basophils # (A) 0.1 k/uL (0-0.2); Basophils % (A) 0 %; Eosinophils # (A) 0.1 k/uL (0-0.7); Eosinophils % (A) 1 %; HCT 31.2 % (34.0-46.0); HGB 9.1 gm/dL (11.4-16.0); Hypochromasia Marked; Lymphocytes # (A) 2.3 k/uL (1.0-4.8); Lymphocytes % (A) 9 %; MCH 22.4 pg (25.0-35.0); MCHC 29.2 g/dL (31.0-37.0); MCV 76.9 fL (80.0-100.0); Mean Platelet Volume 7.6; Microcytosis Slight; Monocytes # (A) 1.2 k/uL (0-1.0); Monocytes % (A) 5 %; Neutrophils # (A) 21.5 k/uL (1.3-7.7); Neutrophils % (A) 85 %; Platelet Count 579 k/uL (150-450); Poikilocytosis Slight; RBC 4.06 m/uL (3.80-5.40); RDW 15.4 % (11.5-15.5); WBC 25.5 k/uL (3.8-10.6)
[2020-09-23] MEDS ORDERED: MORPHINE SULFATE 4 MG/ML SYRINGE IVP PRN (14:28)
[2020-09-23 14:39] LABS: Calcium 7.1 mg/dL (8.4-10.2); Potassium 4.8 mmol/L (3.5-5.1)
[2020-09-23 15:46] VITALS: RESP 18
[2020-09-23] MEDS: ONDANSETRON 4 MG/2 ML VIAL IVP PRN ×2 (15:54→21:34)
[2020-09-23 17:16] LABS: Glucose,Whole Blood 372 mg/dL (75-99)
[2020-09-23] MEDS ORDERED: INSULIN ASPART (NovoLOG) 100 UNIT/ML VIAL SQ SCH (17:30)
[2020-09-23 20:20] VITALS: BP 155/75; PULSE 122; TEMP 99
[2020-09-23] MEDS ORDERED: INSULIN DETEMIR (LEVEMIR) 100 UNIT/ML SYR SQ SCH (21:00)
== END 2020-09-23 21:45 | disposition other institution (70) ==
LOC: EC 21:31
DX: K55.069 Acute infarction of intestine, part and extent unspecified (principal); R05 Cough; E11.9 Type 2 diabetes mellitus without complications; I10 Essential (primary) hypertension; Z20.822 Contact with and (suspected) exposure to COVID-19; Z79.84 Long term (current) use of oral hypoglycemic drugs; Z79.899 Other long term (current) drug therapy; Z88.5 Allergy status to narcotic agent; Z91.018 Allergy to other foods
CPT/HCPCS: 36415 ×2; 93005; 80053; 80048; 82150; 83605 ×2; 83690; 85025 ×2; 85730; 81001; 81025; 87635; 71046; 74177; 96374; 96375; 96361; 99285; J2270; J2405 ×2; J1644 ×2; J0295; J1885; Q9967

== ENCOUNTER → 2020-11-25 | Outpatient (CLI) | payer OTHER ==
--- NOTE | 2020-11-25 15:08 | XR ---
EXAMINATION TYPE: XR chest 2V DATE OF EXAM: 11/25/2020 COMPARISON: Chest x-ray 09/22/2020 HISTORY: RO5, cough for 4 weeks TECHNIQUE: Frontal and lateral views of the chest are obtained. FINDINGS: Patchy basilar density is present on the left. No evident pneumothorax. Lung volumes are l ow. Bronchial wall thickening is present. Cardiomediastinal silhouette is stable. Bones are unchanged . IMPRESSION: Correlate for basilar atelectasis, bronchitis, pneumonia not excluded, follow-up as paige cated.
== END | disposition home or self-care (01) ==
LOC: RADXRMAIN 12:31
PROVIDERS: ATTEND Family Medicine
DX: J98.4 Other disorders of lung (principal)
CPT/HCPCS: 71046

== ENCOUNTER → 2020-12-04 | Outpatient (CLI) | payer OTHER ==
[2020-12-04 18:00] LABS: African American GFR (CKD) >90 (>60 ml/min/1.73 sqM); Blood Urea Nitrogen 9 mg/dL (7-17); Non-African American GFR(CKD) >90 (>60 ml/min/1.73 sqM)
--- NOTE | 2020-12-06 09:18 | CT ---
EXAMINATION TYPE: CT abdomen pelvis w con DATE OF EXAM: 12/04/2020 COMPARISON: CT 09/23/2020 HISTORY: abdominal pain and distention CT DLP: 2491.7 mGycm Automated exposure control for dose reduction was used. TECHNIQUE: Helical acquisition of images from the lung bases through the pelvis have been completed. CONTRAST: Performed with Oral Contrast and with IV Contrast, patient injected with 100 mL of Isovue 300. FINDINGS: Subcutaneous edema changes, anasarca changes present. Suspect some collateral vasculature p resent along the region of the portal vein, previously identified portal vein thrombosis is likely ch ronic, was seen on prior exam within the vein appears somewhat more distended, [place] portal vein sage s not enhance LUNG BASES: Basilar atelectatic changes are present, there is a small left pleural effusion greater t sarabia right AORTA: No significant abnormality is appreciated. LIVER/GB: The bile shows a high density similar to prior exam. PANCREAS: No significant abnormality is seen. SPLEEN: No significant interval change is seen, spleen shows a somewhat irregular appearance as on pr ior. ADRENALS: No significant abnormality is seen. KIDNEYS: No significant abnormality is seen. REPRODUCTIVE ORGANS: No significant abnormality is seen BOWEL: No significant abnormality is seen. FREE AIR: No Free Air visible. ASCITES: There is large amount of ascites present. Ascites is increased compared to prior exam. PELVIC ADENOPATHY: None visualized. RETROPERITONEAL ADENOPATHY: No Retroperitoneal Adenopathy visible. URINARY BLADDER: No significant abnormality is seen. OSSEOUS STRUCTURES: No significant abnormality is seen. IMPRESSION: CHRONIC PORTAL VEIN THROMBOSIS, INCREASE IN ASCITES COMPARED TO PRIOR EXAM. Interval development of p leural effusions left greater than right and associated atelectasis.
== END | disposition home or self-care (01) ==
LOC: RADCTMAIN 17:20
PROVIDERS: ATTEND Family Medicine
DX: I81 Portal vein thrombosis (principal); R18.8 Other ascites; J90 Pleural effusion, not elsewhere classified
CPT/HCPCS: 82565; 84520; 74177; 36415; Q9967

== ENCOUNTER 2022-06-07 19:32 | Emergency (ER) | payer OTHER ==
[2022-06-07] MEDS ORDERED: PROPOFOL 10 MG/ML 20 ML VIAL IV STA (19:44)
--- NOTE | 2022-06-07 19:45 | ED ---
CPR HPI - General Chief Complaint: Cardiac Arrest/CPR Stated Complaint: unresponsive Time Seen by Provider: 06/07/22 19:43 Source: family, RN notes reviewed, old records reviewed, Caregiver Mode of arrival: ambulatory Limitations: altered mental status, physical limitation - History of Present Illness Initial Comments: This is a 46-year-old female to the ER today. Patient is brought in by her local vehicle his own vehicle as patient did become unresponsive during transport from urgent care patient did become unresponsive per transfer per the . He does state that when he gives history taking is patient cannot give history of present illness currently patient is been short of breath especially with exertion for 2 days now prompting her visit to the urgent care today patient was transferred to our facility from urgent care secondary to low oxygen levels. Again patient unresponsive on arrival to emergency department, CPR initiated following ACL short cause here in the emergency department Her patient has no medical history she does take medication including water pill that he knows his been off recently as well as having increased swelling in her legs recently. Patient also has history of blood clot which is not currently on blood thinners anymore MD Complaint: found unresponsive, stopped breathing, other (Patient was having shortness of breath for 3 days was found to be hypoxic urgent care prior to arrival and collapse with loss of pulse prior to emergency department arrival) -: unknown Place: home Bystander CPR Performed: No AED Applied by Bystander/Workers Compensation Legal Secretary: No Shock Advised: No Initial Findings in the Field: unresponsive, no respirations, no pulse ROSC in the Field: No Associated Injuries: No Associated Symptoms: shortness of breath - Related Data Home Medications Medication Instructions Recorded Confirmed metFORMIN HCL [Glucophage] 1,000 mg PO BID 11/13/18 09/22/20 lisinopriL [Prinivil] 10 mg PO DAILY 09/22/20 09/22/20 Previous Rx's Medication Instructions Recorded Insulin Detemir (Levemir) [Levemir] 50 unit SQ HS #30 syr 10/08/18 Metoprolol Tartrate [Lopressor] 50 mg PO BID #60 tab 10/08/18 Allergies Allergy/AdvReac Type Severity Reaction Status Date / Time coconut Allergy Unknown Verified 09/22/20 22:50 palm oil Allergy Unknown Verified 09/22/20 22:50 acetaminophen [From [place]] AdvReac HEADACHE Verified 09/22/20 22:50 hydrocodone [From [place]] AdvReac HEADACHE Verified 09/22/20 22:50 Review of Systems ROS Statement: Those systems with pertinent positive or pertinent negative responses have been documented in the HPI. ROS Other: All systems not noted in ROS Statement are negative. Past Medical History Past Medical History: Diabetes Mellitus, Hyperlipidemia, Hypertension History of Any Multi-Drug Resistant Organisms: None Reported Past Surgical History: Section, Hernia Repair, Tonsillectomy Past Psychological History: No Psychological Hx Reported Smoking Status: Never smoker Past Alcohol Use History: None Reported Past Drug Use History: None Reported General Exam - General Exam Comments Initial Comments: Patient arrives without a pulse Patient is apneic cyanotic and pale Patient is not breathing on her own CPR is initiated on arrival to emergency department, ACLS followed Limitations: altered mental status, physical limitation General appearance: lethargic, obtunded, in distress, obese Head exam: Present: atraumatic, normocephalic, normal inspection Eye exam: Present: normal appearance, PERRL, EOMI. Absent: scleral icterus, conjunctival injection, periorbital swelling ENT exam: Present: normal exam, mucous membranes moist Neck exam: Present: normal inspection. Absent: tenderness, meningismus, l ymphadenopathy Respiratory exam: Present: normal lung sounds bilaterally. Absent: respiratory distress, wheezes, rales, rhonchi, stridor Cardiovascular Exam: Present: regular rate, normal rhythm, normal heart sounds. Absent: systolic murmur, diastolic murmur, rubs, gallop, clicks GI/Abdominal exam: Present: soft, normal bowel sounds. Absent: distended, tenderness, guarding, rebound, rigid Extremities exam: Present: normal inspection, full ROM, normal capillary refill. Absent: tenderness, pedal edema, joint swelling, calf tenderness Back exam: Present: normal inspection Neurological exam: Present: alert, oriented X3, CN II-XII intact Psychiatric exam: Present: normal affect, normal mood Skin exam: Present: warm, dry, intact, normal color. Absent: rash Course Vital Signs 06/07/22 20:27 Fraction of 100 Inspired Oxygen (FIO2) - Reevaluation(s) Reevaluation #1: 06/07/22 20:28 Medical record is reviewed 06/07/22 20:28 CODE BLUE initiated prior to patient's triage ACLS protocol for cause follow Reevaluation #2: 06/07/22 20:28 Patient is in intubated on arrival to emergency department Patient is placed on ventilatory support IV is obtained patient is given Narcan and glucose Patient has multiple return to spontaneous circulation here in the emergency room and return of pulse but unable to oxygenate. Pulses at the present as patient will have heart rate still go from 120s to 80s to 60s to 40s at that point become pulseless and following PA activity this did occur 4 or 5 times here in the emergency department over the course of 40 minutes. At this point patient is decided that her pulses become epinephrine dependent and the hypoxia is not able to be overcome, patient becoming more more cyanotic with pallor and edema, pupils are fixed and dilated, she has no respirations or purposeful movement is brought back into trauma suite where he is spoke with patient's grave prognosis, he does understand significance of current event with his questions are answered. Patient does lose pulses again ultrasound was placed over heart which social cardiac standstill, PEA 06/07/22 20:35 I did speak with site medical director who is aware of this patient 06/07/22 20:35 I did page out the patient's primary care regarding patient's passing Reevaluation #3: 06/07/22 20:31 Spoke with after patient's passing regarding her alcohol, is questions are answered he is currently brought to bedside 06/07/22 20:44 Patient was pronounced at 2019 of 06/07/22 Reevaluation #4: 06/07/22 20:31 Was pt. sent in by a medical professional or institution? @ -prior urgent care Did you speak to anyone other than the patient for history? @ - at bedside Did you review nursing and triage notes? @ -agree Were old charts reviewed? @ -yes Differential Diagnosis? @ -Cardiac Arrest EKG interpreted by me (3pts min.)? @ -yes X-rays interpreted by me (1pt min.)? @ -yes CT interpreted by me (1pt min.)? @ -no U/S interpreted by me (1pt. min.)? @ -no What testing was considered but not performed? (CT, X-rays, U/S, labs)? Why? @ -no What meds were considered but not given? Why? @ -no Did you discuss the management of the patient with other professionals? @ -no Did you reconcile home meds? @ -no Was smoking cessation discussed for >3mins.? @ -no Was critical care preformed (if so, how long)? @ -yes Were there social determinants of health that impacted care today? How? (Ho melessness, low income, unemployed, alcoholism, drug addiction, transportation, low edu. Level, literacy, decrease access to med. care, fdc, rehab)? @ -no Was there de-escalation of care discussed even if they declined? (Discuss DNR or withdrawal of care, Hospice)? @ -no What co-morbidities impacted this encounter? (DM, HTN, Smoking, COPD, CAD, Cancer, CVA, Hep., AIDS, mental health diagnosis, sleep apnea, morbid obesity)? @ -no Was patient admitted / discharged? @ - Undiagnosed new problem with uncertain prognosis? @ -no Drug Therapy requiring intensive monitoring for toxicity (Heparin, Nitro, Insulin, Cardizem)? @ -no Were any procedures done? @ -no Diagnosis/symptom? @ -no Acute, or Chronic, or Acute on Chronic? @ -no Uncomplicated (without systemic symptoms) or Complicated (systemic symptoms)? @ -no Side effects of treatment? @ -no Exacerbation, Progression, or Severe Exacerbation] @ -no Poses a threat to life or bodily function? @ -yes Reevaluation #5: 06/07/22 20:31 MDM cardiac arrest 5Hs 5Ts Procedures - Intubation Laryngoscope: Alia Size: 4 ET Tube Size: 7.5 ET Tube Uncuffed: No Tube Secured Location: teeth Tube Placement Confirmation: visualized tube passing through cords, equal breath sounds bilaterally, no breath sounds over epigastrium, confirmation by capnometry Patient Tolerated Procedure: well Intubation Complications: none, hypoxia (Patient was hypoxic throughout intubation) Medical Decision Making - Medical Decision Making 46 female who did in the emergency department today. Patient was unresponsive likely secondary to hypoxic arrest prior to arrival, patient was able to obtain return of spontaneous circulation but was epinephrine dependent throughout ER stay at bedside, patient was intubated and given ACLS for call here in the emergency department without any improvement and hemodynamic neurological car he was for status. Patient was unable to need to vital signs with epinephrine. She would again bradycardic down to recurrent hypoxic. Patient's pronounced the pupils fixed and dilated in asystole with no respirations and cardiac standstill on ultrasound - Lab Data Lab Results 06/07/22 Range/Units 19:36 POC Glucose (mg/dL) 149 H (70-110) mg/dL POC Glu Foot And Ankle Surgeon ID Romelia Noriega - EKG Data -: EKG Interpreted by Me (EKG shows A. fib RVR 107 QRS 119 QTC 388) EKG shows normal: sinus rhythm (EKG is a regular rhythm 88 PA QRS 138 QTc 407) Rate: bradycardia (EKG is bradycardia undetermined rhythm of 45 QRS 163 QTc 455) - Radiology Data Radiology results: report reviewed (Chest x-ray shows positive ET tube placement, significant right pleural effusion), image reviewed Critical Care Time Critical Care Time: Yes Total Critical Care Time: 95 Disposition Clinical Impression: Acute respiratory failure, Cardiac arrest, Hypoxia, Sudden cardiac Disposition: Condition: Critical Is patient prescribed a controlled substance at d/c from ED?: No Referrals: Darcy Moffett [Primary Care Provider] - 1-2 days Time of Disposition: 20:30 Preliminary Cause of : Hypoxic [place] Arrest
[2022-06-07 19:48] LABS: Glucose,Whole Blood 149 mg/dL (70-110)
--- NOTE | 2022-06-07 20:09 | XR ---
EXAMINATION TYPE: XR chest 1V portable DATE OF EXAM: 06/07/2022 8:02 PM COMPARISON: Chest radiographs from and 2020 TECHNIQUE: XR chest 1V portable Frontal view of the chest. CLINICAL INDICATION:Female, 46 years old with history of arrest; FINDINGS: Lungs/Pleura: Large right pleural effusion with associated atelectasis. No evidence of left pleural e ffusion. No pneumothorax. Pulmonary vascularity: Unremarkable. Heart/mediastinum: Cardiomediastinal silhouette is unremarkable. Musculoskeletal: No acute osseous pathology. Other findings: None Lines/Tubes: Endotracheal tube with distal tip 4.4 cm above the iveth. IMPRESSION: 1. Large right pleural effusion with associated atelectasis. This is new from 2020. 2. Endotracheal tube in appropriate position
[2022-06-07 22:58] VITALS: BP 0/0; PULSE 0; RESP 0
== END 2022-06-07 22:58 | disposition expired ==
LOC: EC 19:32
DX: I46.9 Cardiac arrest, cause unspecified (principal); J96.01 Acute respiratory failure with hypoxia; E11.9 Type 2 diabetes mellitus without complications; I10 Essential (primary) hypertension; Z88.5 Allergy status to narcotic agent; Z91.018 Allergy to other foods; Z79.84 Long term (current) use of oral hypoglycemic drugs; Z79.899 Other long term (current) drug therapy
CPT/HCPCS: 31500; 36415; 71045; 99291; 99292